=== PATIENT | female | born 1955 | race Caucasian/White ===

== ENCOUNTER 2018-07-28 10:47 | Inpatient (IN) ==
[2018-07-28] MEDS ORDERED: BENTYL IM ONE (11:10)
[2018-07-28] MEDS ORDERED: NS 1,000 ML IV ONE ×3 (11:10→13:22)
[2018-07-28] MEDS ORDERED: PEPCID IV ONE (11:11)
[2018-07-28] MEDS ORDERED: SODIUM CHLORIDE 0.9% INJ ONE (11:11)
--- NOTE | 2018-07-28 11:18 | PROVIDER DOCUMENTATION ---
HPI-Abdominal Pain/GI Problem - General Chief Complaint: N/V/D Stated Complaint: N/ V / D Time Seen by Provider: 07/28/18 10:59 Source: patient Allergies/Adverse Reactions: Patient Allergies Allergy/AdvReac Type Severity Reaction Status Date / Time adhesive tape Allergy Unknown Verified 04/06/17 15:31 cefazolin [From Kefzol] Allergy ANAPHYLAXIS Verified 04/06/17 15:31 clarithromycin [From Biaxin] Allergy SWELLING Verified 04/06/17 15:31 diflunisal [From Dolobid] Allergy SWELLING Verified 04/06/17 15:31 latex Allergy ANAPHYLAXIS Verified 04/06/17 15:31 povidone-iodine Allergy Unknown Verified 04/06/17 15:31 [From Betadine] rofecoxib [From Vioxx] Allergy SWELLING Verified 04/06/17 15:31 soap [From Betadine] Allergy Unknown Verified 04/06/17 15:31 sulfamethoxazole Allergy SWELLING Verified 04/06/17 15:31 [From Bactrim] tramadol [From Ultram] Allergy ITCHING Verified 04/06/17 15:31 trimethoprim [From Bactrim] Allergy SWELLING Verified 04/06/17 15:31 verapamil Allergy ANAPHYLAXIS Verified 04/06/17 15:31 Home Medications: Home Medication List Medication Instructions Recorded Confirmed Last Taken Type Amlodipine Besylate [Norvasc] 5 mg PO DAILY 04/06/17 04/08/17 04/07/17 06:00 History Atorvastatin Calcium [Lipitor] 20 mg PO DAILY 04/06/17 04/08/17 04/07/17 21:00 History Baclofen 10 mg PO TID 04/06/17 04/08/17 04/07/17 21:00 History Calcium Carbonate [Caltrate 600] 600 mg PO DAILY 04/06/17 04/08/17 04/07/17 06:00 History Cetirizine HCl [Zyrtec] 10 mg PO DAILY 04/06/17 04/08/17 04/07/17 06:00 History Cholecalciferol (Vitamin D3) 1,000 unit PO DAILY 04/06/17 04/08/17 04/07/17 06:00 History [Vitamin D3] Fluticasone 50 Mcg Nasal [place] 1 spray YAS DAILY 04/06/17 04/08/17 04/07/17 21:00 History [Flonase] Fluticasone/Sal[place] 100/50 INH 1 puff INH BID 04/06/17 04/08/17 04/08/17 07:00 History [Advair 100/50 Diskus] Furosemide [Lasix] 40 mg PO DAILY PRN 04/06/17 04/08/17 02/18/17 08:00 History Levothyroxine [Synthroid] 88 microgm PO DAILY 04/06/17 04/08/17 04/08/17 07:00 History Losartan/Hctz [Hyzaar 100/12.5 mg 1 each PO DAILY 04/06/17 04/08/17 04/07/17 06:00 History Tab] Magnesium Cl D.r. [Slow-Mag] 64 mg PO DAILY 04/06/17 04/08/17 04/07/17 21:00 History Metformin [Glucophage] 500 mg PO BID CC 04/06/17 04/08/17 04/07/17 17:00 History Montelukast Sodium [Singulair] 10 mg PO DAILY 04/06/17 04/08/17 04/08/17 07:00 History Morphine E.r. [Ms Contin] 15 mg PO BID 04/06/17 04/08/17 04/08/17 00:00 History Naproxen Sodium [Aleve] 220 mg PO BID 04/06/17 04/08/17 04/01/17 21:00 History Oxycodone HCl/Acetaminophen 1 each PO BID 04/06/17 04/08/17 04/07/17 18:00 History [Percocet 10-325 mg Tablet] Pantoprazole [Protonix] 40 mg PO DAILY 04/06/17 04/08/17 04/07/17 21:00 History Potassium Chloride 20 meq PO DAILY 04/06/17 04/08/17 04/07/17 11:55 History Promethazine [Phenergan] 25 mg PO Q6H PRN PRN 04/06/17 04/08/17 04/06/17 21:00 History Sennosides [Senokot] 1 each PO DAILY 04/06/17 04/08/17 04/07/17 21:00 History Spironolactone [Aldactone] 25 mg PO BID 04/06/17 04/08/17 04/07/17 18:00 History Vitamin B Complex 1 each PO DAILY 04/06/17 04/08/17 04/07/17 06:00 History Volmax 4 mg PO QHS 04/06/17 04/08/17 04/07/17 21:00 History Zolpidem [Ambien] 10 mg PO QHS 04/06/17 04/08/17 04/08/17 00:00 History Hydrocodone/Acetaminophen [[place] 1 each PO Q6H PRN PRN #15 tablet 04/08/17 Unknown Rx 10-325 Tablet] Promethazine [Phenergan] 25 mg PO Q6H PRN PRN #5 tablet 04/08/17 Unknown Rx Ciprofloxacin HCl [Cipro] 500 mg PO BID #14 tab 10/07/17 Unknown Rx - History of Present Illness-ABD Nature of Presenting Problems: Pt reports diarrhea started 7 days ago and resolved 3 days ago but n/v started 3 days ago. States her diarrhea was watery and her emesis is yellow bile. Has epigastric pain and weakness with SOB that started today. Abdominal Pain Onset Location: reports: generalized abdomen Pain Radiation: reports: no radiation Quality of Pain: reports: pressure, sharp Severity in ED: reports: moderate Onset/Duration: reports: 1 week ago Timing: reports: getting worse Exposure to sick contacts?: No Modifying Factors: improves with: nothing Associated Symptoms: reports: diarrhea, fatigue, malaise, muscle aches, nausea, shortness of breath, vomiting, weakness. denies: dizziness, fever/chills, headaches, pain with inspiration, syncope Last BM: this morning Dark Stools Present?: reports: none noticed Rectal Bleeding: reports: none # of Diarrhea Episodes: 10 (>10/day) # of Vomiting Episodes: 10 (>10/day) Emesis Description: reports: none Bruising or Bleeding Gums?: No Similar Symptoms Previously?: Yes (has h/o GERD) Recently seen or treated by another doctor?: No Review of Systems - Adult - REVIEW OF SYSTEMS - ADULT Constitutional: reports: nelly. denies: chills, fever Eyes: denies: blurred vision, double vision Cardiovascular: denies: chest pain Respiratory: reports: shortness of breath. denies: cough Gastrointestinal: reports: see HPI, abdominal pain, diarrhea, nausea, vomiting Neurological: denies: numbness, paresthesia All Other Systems: Reviewed and Negative Past History - Adult - PAST MEDICAL HISTORY-ADULT Review of Records: reports: Old Records Reviewed, Nursing Assessment Review, Medications Reviewed Gastrointestinal: reports: GERD - FAMILY HISTORY Family History: reviewed, not pertinent - SOCIAL HISTORY Smoking: non-smoker Living Situation: alone Physical Exam-General - PHYSICAL EXAM-ADULT Initial Vital Signs Reviewed: Yes - CONSTITUTIONAL General Appearance: appears well, alert, no apparent distress - EYES Eyes: PERRL/EOMI, pink conjunctivae - HEAD, EARS, NOSE, MOUTH & THROAT HENMT: normocephalic/atraumatic, moist mucous membranes - NECK Neck: non-tender, full range of motion, supple - RESPIRATORY Respiratory: chest non-tender, lungs clear, normal breath sounds - CARDIOVASCULAR Cardiovascular: regular rate, rhythm, no edema - GASTROINTESTINAL (ABDOMEN) Abdominal Exam: abnormal bowel sounds (hyperactive bowel sounds), tenderness (generalized). negative: distended, guarding, rigid, rebound, hernia, mass - MUSCULOSKELETAL Extremity: normal gait (uses cardiac rolling walker), normal inspection - SKIN Integumentary: normal color, normal turgor, warm/dry - NEUROLOGIC Neurologic: grossly normal, no motor/sensory deficits - PSYCHIATRIC Psych/Mental Status: normal thought content, normal thought process Progress - PLAN OF CARE/RESULTS Progress/Plan/Lab Results: Vital Signs - 8 hr 07/28/18 10:50 Temperature 96.9 F L Pulse Rate 113 H Respiratory Rate 20 Blood Pressure 91/49 O2 Sat by Pulse Oximetry 96 Orders Category Date Time Status Saline Loc NOW Care 07/28/18 11:10 Active AMYLASE [CHEM] Stat Lab 07/28/18 10:56 Ordered CBC WITH DIFF [HEME] Stat Lab 07/28/18 10:56 Uncollected COMPREHENSIVE METABOLIC PANEL [CHEM] Stat Lab 07/28/18 10:56 Uncollected LIPASE [CHEM] Stat Lab 07/28/18 10:56 Uncollected OCCULT BLOOD SCREEN STOOL PL Stat Lab 07/28/18 11:10 Uncollected TYPE & SCREEN [BBK] Stat Lab 07/28/18 10:56 Uncollected 0.9% Sodium Chloride Inj [Ns] 1,000 ml Med 07/28/18 11:10 Active IV 999 mls/hr Dicyclomine [Bentyl] Med 07/28/18 11:10 Discontinued 20 mg IM NOW ONE Famotidine [Pepcid] Med 07/28/18 11:11 Discontinued 20 mg IV NOW ONE Sodium Chloride 0.9% Med 07/28/18 11:11 Discontinued 5 - 10 ml INJ NOW ONE Abd Pain/Abn Bleeding Stat Oth 07/28/18 10:55 Ordered Result Diagrams: 07/28/18 11:25 07/28/18 11:25 - REASSESSMENT Reassessment #1 Time Reassessed: 15:26 (discussed admission with pt and all questions answered, pt motivated to improve as she is scheduled to visit grandchild in [place] at the end of the month) Status: improving - CONSULTS/PCP/HOSPITALIST Notification #1 *Consult/PCP/Hospitalist*: [place] Time Discussed: 14:26 Consult Disposition: Admit (admit to ICU) Departure - Departure Date of Disposition Decision: 07/28/18 Time of Disposition Decision: 14:26 DIAGNOSIS: Sepsis associated hypotension UTI (urinary tract infection) Qualifiers: Urinary tract infection type: acute cystitis Hematuria presence: with hematuria Qualified Code(s): N30.01 - Acute cystitis with hematuria Disposition: ADMITTED INPATIENT 09 Certified Medical Emergency: Emergent Condition: Stable - Critical Care Note This patient required my direct & personal management of CC.: No Attestation - Physician/ SANDRA Attestation Patient care was provided by Advanced Practice Provider:: Yes Advanced Practice Provider:: Geneva Wills Advanced Practice Provider documentation review:: The Mid-level provider documentation, treatment plan and medical decision making was reviewed by the physician who agrees with all treatment and medical decision making by the MLP. The physician spent face to face time with patient:: Yes Advanced Practice Provider documentation review:: Supervising physician onsite and consulted in the evaluation and care of this patient. The physician did have a face to face encounter with the patient.
[2018-07-28 11:35] LABS: OCCULT BLOOD 1 NEGATIVE (NEGATIVE)
[2018-07-28] MEDS ORDERED: ZOFRAN IV ONE ×2 (11:41→15:29)
[2018-07-28 11:45] LABS: BASO# 0.02 X1000 (0.0-0.2); BASO% 0.1 % (0.0-0.8); EOS# 0.02 X1000 (0.0-0.7); EOS% 0.1 % (0.0-10.0); HEMATOCRIT 39.2 % (37.0-47.0); IMM GRAN# 0.04 X1000 (0.0-0.04); IMM GRAN% 0.3 % (0.0-0.5); LYMPH% 18.7 % (20.5-51.1); MCHC 33.2 g/dL (33-37); MCV 87.5 FL (81-99); MONO# 1.43 X1000 (0.11-0.59); MONO% 9.9 % (1.7-9.3); MPV 10.9 FL (7.4-10.4); NEUT# 10.23 X1000 (1.4-6.5); NEUT% 70.9 % (42.2-75.2); PLT 397 X1000 (130-400); RBC 4.48 XMIL (4.2-5.4); RDW 13.1 % (11.5-14.5); WBC 14.44 X1000 (4.8-10.8)
[2018-07-28 12:07] LABS: ALBUMIN 4.3 g/dL (3.5-5.0); CALCIUM 9.4 mg/dL (8.8-10.2); CREATININE 2.1 mg/dL (0.5-0.9); POTASSIUM 3.2 mmol/L (3.5-5.1); TOTAL BILIRUBIN 0.6 mg/dL (0.20-1.00); TOTAL PROTEIN 8.1 g/dL (6.3-8.3)
[2018-07-28 12:44] LABS: URINE SOURCE CLEAN CATCH
[2018-07-28 12:45] LABS: BILIRUBIN URINE NEGATIVE (NEGATIVE); BLOOD URINE 3+ (NEGATIVE); CLARITY CLEAR (CLEAR); COLOR YELLOW; KETONE URINE NEGATIVE (NEGATIVE); LEUKOCYTES URINE TRACE (NEGATIVE); NITRITE URINE POSITIVE (NEGATIVE); PROTEIN URINE 2+(100 mg/dL) mg/dL (NEGATIVE); UROBILINOGEN URINE 1 mg/dL
[2018-07-28 12:59] LABS: CK-MB 4.08 ng/mL (0.0-5.0)
[2018-07-28 13:06] LABS: INR 0.96; PROTIME 13.3 Seconds (11.0-16.0)
[2018-07-28 13:07] LABS: PTT 26.3 Seconds (22.3-41.8)
[2018-07-28] MEDS ORDERED: NS 500 ML IV ONE (13:22)
[2018-07-28] MEDS ORDERED: PITRESSIN 40 UNIT in NS 100 ML IV SCH (13:30)
[2018-07-28] MEDS ORDERED: LEVOPHED 8 MG in D5 1/2 NS 250 ML IV SCH (13:30)
[2018-07-28] MEDS ORDERED: EPINEPHRINE 8 MG in D5W 250 ML IV SCH (13:30)
[2018-07-28] MEDS ORDERED: ZOSYN 3.375 GM in NS 50 ML IV ONE (14:00)
[2018-07-28] MEDS ORDERED: TYLENOL PO PRN (14:32)
[2018-07-28] MEDS ORDERED: PYRIDIUM PO ONE (14:59)
--- NOTE | 2018-07-28 15:19 | Diag Imaging Result Doc PS360 ---
EXAM: CT RENAL STONE SEARCH 07/28/2018 HISTORY: abdominal pain TECHNIQUE: This exam was performed using automated exposure control, adjustment of mA or kV according to patient size, and/or use of iterative reconstruction technique. COMMENT: There are no previous studies available for comparison. There is no evidence of acute disease in the visualized portion of the chest. There is a partially visible granulomatous calcified node in the lower right hilum. There has been cholecystectomy. There is no evidence of nephrolithiasis. The collecting system on the right is somewhat distended. There are some air-fluid levels in the small bowel without definite obstructing lesion or transition zone. There is gas and stool throughout the colon. There is some beam hardening artifact arising from hardware in the lumbar spine. There is a Perdomo catheter in the urinary bladder. There is no evidence of ureteral stones. There is no evidence of appendicitis. There has been previous hysterectomy. There are bilateral ovarian cysts the left-sided cyst measuring 5.2 cm and the right-sided cyst measuring 3 cm. There is no abnormal fluid collection. There is a fat-containing umbilical hernia. There is diverticulosis in the sigmoid colon without evidence of active diverticulitis. There is a bone island in the left femoral head. IMPRESSION: Bilateral ovarian cysts. Mild constipation. Mild right hydronephrosis without clear etiology. The possibility of gastroenteritis cannot be excluded. Electronically signed by Tu Sainz 07/28/2018 3:16 PM
--- NOTE | 2018-07-28 15:20 | Diag Imaging Result Doc PS360 ---
EXAM: CHEST-PORTABLE 07/28/2018 HISTORY: leukocytosis; pos pna TECHNIQUE: AP portable at 1509 COMMENT: There is no evidence of acute cardiac or pulmonary disease. There may be COPD. Compared to 10/06/2017 there has been no significant change. IMPRESSION: COPD. Electronically signed by Tu Sainz 07/28/2018 3:17 PM
[2018-07-28] MEDS ORDERED: NS 1,000 ML ONE (15:29)
[2018-07-28] MEDS: ZYVOX 600 MG/D5W 600 MG/300 ML IVPB IV SCH (15:40)
[2018-07-28] MEDS: PROTONIX IV SCH (17:40)
[2018-07-28] MEDS: SODIUM CHLORIDE 0.9% INJ SCH (17:41)
--- NOTE | 2018-07-28 18:19 | HISTORY AND PHYSICAL ---
PRIMARY CARE PROVIDER: Dr. Dominguez. UROLOGIST: Dr. Meraz. CHIEF COMPLAINT: Nausea, vomiting, diarrhea, and right flank pain. HISTORY OF PRESENT ILLNESS: Ms. Maddie Glaser is a 63-year-old female with a medical history of morbid obesity, prolapsed bladder, frequent urinary tract infections since a child, urinary spasms, pyelonephritis, severe potassium loss with urination who apparently gets UTIs every 3-4 months, according to her. She also has a history of chronic pain syndrome. She presents here with complaints of what she states was volume overload about a week ago. She went to the pain clinic, had shortness of breath and low blood pressure according to her, and went home to self-treat instead of coming to the hospital. She developed nausea, vomiting, and diarrhea for at least a week. She states the diarrhea stopped around 3 days ago, but it was loose and yellow, and then the emesis she still continues to have, and it is yellow with severe epigastric pain. She has complained of chills and a 99 fever that is subjective, and today she developed right flank pain that is essentially achy. She does have burning with urination but denies any smell. She does state that she is normally having frequency. When she presented to the emergency department, her white blood cell count was 14,000, although the highest her temp here is 99.3, heart rate is normal, blood pressure is normal. Hemodynamically, she is stable, satting room air 96%. With the white blood cell count of 14,000, a lactate level was drawn, and it came back at 4.2, but a repeat has been down to 2.0 after IV fluid hydration. A urinalysis indicates that there is likely a urinary tract infection, and a urine culture has been sent. She also has a history of low potassium that she frequently gets rid of through urination, and it is 3.2 today. She states that she takes 40 mEq of potassium 3 times a day. She went for a renal CT, which indicates that she does have some mild right hydronephrosis without any clear etiology. There is some mild constipation, but there is a good possibility of gastroenteritis. A chest x-ray looks like it is saying COPD, but she denies any history of that. She is admitted for close observation to the ICU just due to the sepsis and the hypotension that she was originally experiencing from it. Apparently, she had gotten down to the 80s, and now it is back up after IV fluid hydration. PAST MEDICAL HISTORY: 1. Chronic pain syndrome. 2. Anemia. 3. Arthritis. 4. Asthma and probably COPD due to body size. 5. Multiple bladder system problems, prolapsed bladder, UTIs since a child that are every 3-4 months, the last one being 10 months ago. 6. Bladder spasms. 7. Frequent pyelonephritis. 8. Excessive potassium loss through urination where she takes 40 mEq of potassium 3 times a day. 9. GERD. 10. Hypertension. 11. Hives frequently due to severe seasonal allergies. 12. Hyperlipidemia. 13. Hypothyroidism. 14. Peptic ulcer disease, had several ulcers in the late 80s, early 90s. 15. Morbid obesity with a BMI of 41.1. SURGICAL HISTORY: 1. Bilateral carpal tunnel repair. 2. Right foot surgery. 3. Partial hysterectomy. 4. Neck disk surgery. 5. Spinal fusion of the neck and lower back. 6. Subtotal thyroidectomy. 7. Cholecystectomy. SOCIAL HISTORY: Denies tobacco, alcohol, or illicit drug use. 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 FAMILY HISTORY: Mother's side of the family is positive for coronary artery disease, stroke, diabetes, breast and lung cancer. She had one brother who had hypertension, one sister has DJD. Unclear on father's side of the family's history. ALLERGIES: Latex, Betadine, adhesive tape, verapamil, Kefzol, Biaxin, Bactrim, Vioxx, and Ultram. HOME MEDICATIONS: Have not been verified yet. There has been an order placed to update and confirm homes. REVIEW OF SYSTEMS: Fourteen-point review of systems were complete and all were negative except for those mentioned in the above HPI. She has complained of severe epigastric pain and now generalized abdominal pain. PHYSICAL EXAMINATION: VITAL SIGNS: Temperature is 98.4, heart rate 84, respiratory rate 22, blood pressure 121/66, O2 saturation 96% on room air. She is 5 feet 4 inches tall, 239 pounds. BMI is 41.1. GENERAL: Ms. Maddie Glaser is a 63-year-old female. She is in no acute distress. She is able to answer questions appropriately. HEENT: Atraumatic, normocephalic. Pupils equal, round, reactive to light. Extraocular movements intact. Mucous membranes are dry. NECK: Trachea midline. CARDIOVASCULAR: S1, S2, regular rate and rhythm, no rubs, gallops, or murmurs. No lower extremity edema. +2 dorsalis and radial pulses. Negative JVD or carotid bruits. PULMONARY: Clear to auscultate bilateral breath sounds. No accessory muscle use or work of breathing noted. GI: Soft. Tender in all 4 quadrants. Also, right CVA tenderness. EXTREMITIES: Moves all extremities equally. Full range of motion. NEUROLOGICAL: Alert and oriented x3, follows commands. SKIN: Warm, dry, and intact. LABORATORY DATA: White blood cells 14,000, hemoglobin 13, hematocrit 39, platelet count 397. INR 0.96, PTT is 26.3. Sodium 127, potassium 3.2, BUN 25, creatinine 2.1, glucose 185, calcium 9.4. Bilirubin 0.60, AST 86, ALT 67. CK 408, troponin less than 0.01. Albumin is 4.3. Amylase 76, lipase 102. Serum lactate initially was 4.2, is down to 2.0. Urinalysis: 2+ protein, 3+ blood, positive nitrites, trace white blood cells, trace glucose. Stool occult blood is negative. IMAGING: Chest x-ray shows COPD possible. She does have a history of asthma. Renal CT: Bilateral ovarian cysts. Mild constipation. Mild right hydronephrosis without clear etiology. The possibility of gastroenteritis could not be excluded. ASSESSMENT AND PLAN: 1. Sepsis secondary to urinary tract infection. This is essentially resolved. Blood pressure stabilized after IV fluid hydration. They initiated her on Zosyn. They gave her some Pyridium, as well, and will continue the Zosyn. She is initiated on Zyvox, as well, until they can at least get blood culture preliminaries back, and she will be on IV fluid hydration at 125 mL an hour. 2. Acute kidney injury, again on IV fluid hydration. She is dehydrated. It is all prerenal. 3. Acute right pyelonephritis. Please see #1. Again, will be on Zosyn, on IV fluid hydration. 4. Gastroenteritis is likely, and the diarrhea has stopped now--it is just down to the nausea and vomiting, and she can have antiemetics, and she is getting IV fluid hydration. 5. Gastroesophageal reflux disease. Continue with proton pump inhibitor. 6. History of hyperlipidemia, waiting for home meds to be verified. 7. Hypothyroidism. Again, will continue with Synthroid once it is verified. 8. Depression. 9. History of asthma. 10. Chronic pain syndrome. 11. DVT prophylaxis. SCDs. Dictated by MICKI Welsh for Fortunato Ta MD cc: MICKI Welsh MD
[2018-07-28 18:24] LABS: BILIRUBIN URINE NEGATIVE (NEGATIVE); BLOOD URINE NEGATIVE (NEGATIVE); CLARITY CLEAR (CLEAR); COLOR YELLOW; GLUCOSE URINE NEGATIVE (NEGATIVE); KETONE URINE NEGATIVE (NEGATIVE); LEUKOCYTES URINE NEGATIVE (NEGATIVE); NITRITE URINE POSITIVE (NEGATIVE); PROTEIN URINE 1+(30 mg/dL) mg/dL (NEGATIVE); UROBILINOGEN URINE 1 mg/dL
[2018-07-28 18:27] LABS: URINE SOURCE CATH
[2018-07-28 18:29] LABS: URINE CAST NONE SEEN /LPF; URINE CRYSTAL NONE SEEN /HPF; URINE EPITHELIAL CELLS <10 /HPF (<10); URINE RBC <10 /HPF (<10); URINE WBC <10 /HPF (<10); URINE YEAST NONE SEEN /HPF
[2018-07-28 18:30] LABS: URINE BACTERIA NEGATIVE /HFP
[2018-07-28] MEDS ORDERED: DUONEB (A & A) INH PRN (18:51)
--- NOTE | 2018-07-28 19:12 | HISTORY AND PHYSICAL ---
ADDENDUM: This is an H and P addendum with MICKI Welsh. The patient is a pleasant 63-year-old female with chronic pain, anemia, COPD with multiple bladder problems. 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 Blood pressure was low. She was blacking out, seeing black spots. She had some diarrhea that stopped about a week ago. Her workup here showed an elevated lactate level and hyponatremia, acute renal failure. On exam, though, it is fairly benign. Lungs are clear. White count was 14. Abdominal exam is diffusely tender but no rebound, no guarding. Her urine was consistent with urinary tract infection. She had a positive nitrite, 3+ blood, but not a lot of white blood cells. She is heme- negative. Her CT scan shows some mild right hydronephrosis and gastroenteritis. In any case, the patient will be admitted and placed on fluids. Sepsis is felt to be secondary to UTI. She is on Zosyn, and we will continue. I think that is reasonable to continue Zosyn, and follow for clinical improvement. The rest of her labs have been ordered and stabilized. This was a [id number] encounter note with MICKI Welsh. cc: Fortunato Ta MD
[2018-07-28] MEDS: ZOFRAN IV PRN (20:42)
[2018-07-28] MEDS: CARAFATE LIQUID PO SCH (20:42)
[2018-07-28] MEDS: NS 1,000 ML IV PRN (20:42)
[2018-07-28] MEDS: TOPAMAX PO SCH (20:43)
[2018-07-28] MEDS: LIPITOR PO SCH (20:43)
[2018-07-28] MEDS: TYLENOL PO PRN (20:43)
[2018-07-28] MEDS: ZOSYN 3.375 GM in NS 50 ML IV SCH (20:43)
[2018-07-28] MEDS ORDERED: BLISTEX MEDICATED BERRY LIP BALM TOP PRN (20:47)
[2018-07-28] MEDS ORDERED: HEPARIN SUBQ SCH (21:00)
[2018-07-28] MEDS ORDERED: PERCOCET-10 PO SCH (21:00)
[2018-07-28] MEDS ORDERED: MS CONTIN PO SCH (21:00)
[2018-07-29] MEDS: AMBIEN PO SCH ×2 (00:10→21:15)
[2018-07-29] MEDS: MS CONTIN PO SCH ×2 (00:11→11:58)
[2018-07-29] MEDS: ZYVOX 600 MG/D5W 600 MG/300 ML IVPB IV SCH ×2 (02:36→14:58)
[2018-07-29] MEDS: ZOSYN 3.375 GM in NS 50 ML IV SCH ×4 (02:36→21:15)
[2018-07-29] MEDS: CARAFATE LIQUID PO SCH ×4 (02:36→21:15)
[2018-07-29 04:12] LABS: BE 14.2 mmoll (-3.0-3.0); BLOOD TYPE ARTERIAL; METHB 0.5 % (0.0-1.5); O2(CT) 11.2 mL/dL (15.0-23.0); O2HB 93.6 % (95.0-99.0); PO2(98.6) 74 mmHg (60-100); SAMPLE BLOOD; SAO2 94.3 % (95.0-100.0); THB 8.4 g/dL (11.5-17.4); pH(98.6) 7.44 (7.35-7.45)
[2018-07-29 04:16] LABS: ALLEN TEST NO; MODALITY CANNULA; PCO2(98.6) 59 mmHg (35-45)
[2018-07-29] MEDS: PERCOCET-10 PO SCH ×2 (05:50→17:19)
[2018-07-29] MEDS: PROTONIX IV SCH ×2 (05:50→17:20)
[2018-07-29] MEDS: SYNTHROID PO SCH (06:06)
[2018-07-29 07:51] LABS: BASO# 0.03 X1000 (0.0-0.2); BASO% 0.3 % (0.0-0.8); EOS# 0.09 X1000 (0.0-0.7); EOS% 0.9 % (0.0-10.0); HEMATOCRIT 36.2 % (37.0-47.0); HEMOGLOBIN 11.5 g/dL (12.0-16.0); IMM GRAN# 0.02 X1000 (0.0-0.04); IMM GRAN% 0.2 % (0.0-0.5); LYMPH# 3.78 X1000 (1.2-3.4); LYMPH% 38.1 % (20.5-51.1); MCHC 31.8 g/dL (33-37); MCV 91.2 FL (81-99); MONO# 0.96 X1000 (0.11-0.59); MONO% 9.7 % (1.7-9.3); MPV 11.1 FL (7.4-10.4); NEUT# 5.03 X1000 (1.4-6.5); NEUT% 50.8 % (42.2-75.2); PLT 312 X1000 (130-400); RBC 3.97 XMIL (4.2-5.4); RDW 13.3 % (11.5-14.5); WBC 9.91 X1000 (4.8-10.8)
[2018-07-29 08:13] LABS: ALBUMIN 3.4 g/dL (3.5-5.0); CALCIUM 8.6 mg/dL (8.8-10.2); CREATININE 1.7 mg/dL (0.5-0.9); MAGNESIUM 2.7 mg/dL (1.5-2.7); TOTAL BILIRUBIN 0.7 mg/dL (0.20-1.00); TOTAL PROTEIN 6.7 g/dL (6.3-8.3)
[2018-07-29 08:22] LABS: POTASSIUM 2.5 mmol/L (3.5-5.1)
[2018-07-29 08:36] LABS: PROTIME > 120.0 Seconds (11.0-16.0); PTT > 200.0 Seconds (22.3-41.8)
[2018-07-29 08:37] LABS: INR > 15.00
[2018-07-29] MEDS ORDERED: KLOR-CON PO ONE (08:52)
[2018-07-29] MEDS: LIORESAL PO SCH ×3 (09:11→17:19)
[2018-07-29] MEDS: ZYRTEC PO SCH (09:12)
[2018-07-29] MEDS: CALTRATE 600 PO SCH (09:12)
[2018-07-29] MEDS: TOPAMAX PO SCH ×4 (09:12→21:15)
[2018-07-29] MEDS: SINGULAIR PO SCH (09:12)
[2018-07-29] MEDS: LOMOTIL PO SCH ×3 (09:14→17:11)
[2018-07-29] MEDS: POTASSIUM CHLORIDE 20 MEQ/SWI 20 MEQ/100 ML IVPB IV SCH ×3 (09:22→13:00)
[2018-07-29] MEDS: BREO ELLIPTA 200/25 MCG INH INH SCH (12:12)
[2018-07-29 14:52] LABS: INR 0.91; PROTIME 12.7 Seconds (11.0-16.0)
[2018-07-29 14:53] LABS: PTT 26.2 Seconds (22.3-41.8)
--- NOTE | 2018-07-29 15:22 | PROGRESS NOTE ---
DATE: 07/29/2018 SUBJECTIVE: Patient has no major complaints. OBJECTIVE: Vital Signs: Blood pressure is 136/65, heart rate of 85, respiratory rate 22, temperature 98.3 degrees. Cardiovascular: Regular rate and rhythm. Pulmonary: Bilateral breath sounds clear to auscultation. GI: Soft, nontender, nondistended. Bowel sounds are positive. LABORATORY DATA: H and H is 11, and 36, which is a drop. White count 9, platelets 312,000. All her coags though are abnormal. INR is greater than 15, PTT greater than 200, PaO2 74. Potassium 2.5, creatinine 1.7. AST and ALT are 74 and 57. Her micro though is negative. She is heme negative. PROBLEM LIST: 1. UTI and sepsis. Clinically she has improved. However, her urine culture is negative. We will continue empiric antibiotics. She is on Zosyn and Zyvox pending her cultures. 2. Acute kidney injury is improving with hydration. We will continue fluids. Her urine electrolytes are likely consistent with pre renal but it is not 100% obvious there, but she is improving with fluids. 3. GERD. We will continue PPI. 4. Acute coagulopathy. At this point I am suspicious it is lab error. However, the numbers are so profoundly elevated, I did order 2 units of fresh frozen plasma. There is no evidence of bleeding. Repeat coags are pending. She is not on any anticoagulation. She did receive some subcu heparin, but that certainly would not have caused this level of abnormality. Hopefully, this is a lab error. If it is not a lab error, we will get a hematology opinion and she may end up requiring transfer. There is no evidence of bleeding at this point. Will monitor in the unit until we can resolve her coagulopathy issues. cc: Fortunato Ta MD
[2018-07-29] MEDS: SODIUM CHLORIDE 0.9% INJ SCH (17:19)
[2018-07-29] MEDS: LIPITOR PO SCH (21:15)
[2018-07-29] MEDS: TYLENOL PO PRN (21:15)
[2018-07-30] MEDS: MS CONTIN PO SCH ×3 (00:13→23:14)
[2018-07-30] MEDS: NS 1,000 ML IV PRN ×2 (00:18→14:06)
[2018-07-30] MEDS: ZOSYN 3.375 GM in NS 50 ML IV SCH ×4 (01:34→21:08)
[2018-07-30] MEDS: CARAFATE LIQUID PO SCH ×4 (01:34→21:08)
[2018-07-30] MEDS: ZYVOX 600 MG/D5W 600 MG/300 ML IVPB IV SCH (02:32)
[2018-07-30] MEDS: ZOFRAN IV PRN ×2 (05:50→10:33)
[2018-07-30] MEDS: PROTONIX IV SCH ×2 (05:50→17:25)
[2018-07-30] MEDS: PERCOCET-10 PO SCH ×2 (05:50→17:24)
[2018-07-30] MEDS: SYNTHROID PO SCH (06:06)
--- NOTE | 2018-07-30 07:45 | Diag Imaging Result Doc PS360 ---
EXAM: CHEST-PORTABLE 07/30/2018 HISTORY: FU SOB TECHNIQUE: AP portable at 0630 COMMENT: There is no evidence of acute cardiac or pulmonary disease. Considering differences in technique and inspiration there has been no significant change since 07/28/2018. IMPRESSION: Stable chest. Electronically signed by Tu Sainz 07/30/2018 7:43 AM
[2018-07-30 08:27] LABS: BASO# 0.05 X1000 (0.0-0.2); BASO% 0.5 % (0.0-0.8); EOS# 0.26 X1000 (0.0-0.7); EOS% 2.4 % (0.0-10.0); HEMATOCRIT 35.9 % (37.0-47.0); IMM GRAN# 0.03 X1000 (0.0-0.04); IMM GRAN% 0.3 % (0.0-0.5); LYMPH# 4.69 X1000 (1.2-3.4); LYMPH% 42.6 % (20.5-51.1); MCH 28.9 PG (27-31); MCHC 30.6 g/dL (33-37); MCV 94.2 FL (81-99); MONO# 0.98 X1000 (0.11-0.59); MONO% 8.9 % (1.7-9.3); MPV 11.2 FL (7.4-10.4); NEUT# 5.01 X1000 (1.4-6.5); NEUT% 45.3 % (42.2-75.2); PLT 286 X1000 (130-400); RBC 3.81 XMIL (4.2-5.4); RDW 13.6 % (11.5-14.5); WBC 11.02 X1000 (4.8-10.8)
[2018-07-30 08:31] LABS: PTT 27.3 Seconds (22.3-41.8)
[2018-07-30 08:34] LABS: INR 0.89; PROTIME 12.5 Seconds (11.0-16.0)
[2018-07-30 08:36] LABS: CALCIUM 8.5 mg/dL (8.8-10.2); CREATININE 1.3 mg/dL (0.5-0.9)
[2018-07-30] MEDS: ZYRTEC PO SCH (09:14)
[2018-07-30] MEDS: SINGULAIR PO SCH (09:14)
[2018-07-30] MEDS: TOPAMAX PO SCH ×4 (09:14→21:00)
[2018-07-30] MEDS: LOMOTIL PO SCH ×3 (09:14→17:24)
[2018-07-30] MEDS: LIORESAL PO SCH ×3 (09:14→17:24)
[2018-07-30] MEDS: CALTRATE 600 PO SCH (09:14)
[2018-07-30] MEDS: BREO ELLIPTA 200/25 MCG INH INH SCH (09:37)
[2018-07-30] MEDS ORDERED: KLOR-CON PO ONE (12:10)
[2018-07-30] MEDS: POTASSIUM CHLORIDE 20 MEQ/SWI 20 MEQ/100 ML IVPB IV SCH ×2 (14:16→23:52)
[2018-07-30] MEDS: SODIUM CHLORIDE 0.9% INJ SCH (17:25)
[2018-07-30] MEDS ORDERED: NS 1,000 ML IV PRN (17:42)
--- NOTE | 2018-07-30 17:58 | PROGRESS NOTE ---
DATE: 07/30/2018 SUBJECTIVE: Patient has no major complaints. OBJECTIVE: Vital signs: Blood pressure is 152/75, heart rate 72, respiratory rate 18, temperature of 98.4 degrees. Cardiovascular: Regular rate and rhythm. Pulmonary: Bilateral breath sounds. Clear to auscultation. GI: Soft, nontender, nondistended. Bowel sounds are positive. LABORATORY DATA: Her white count went up just a hair 11,000 but is down from 14, hemoglobin and hematocrit are 11 and 35. Creatinine is down to 1.3, down from initially 2.1, but potassium is still low at 3. Micro still has not grown out anything. Chest x-ray is still clear but clinically it looked like she had a UTI on admission. PROBLEM LIST: 1. Urinary tract infection, presumed, with sepsis. That has resolved. She is on Zosyn which I think we can probably stop and discharge on Augmentin tomorrow. 2. Acute kidney injury. That seems to be better. She had some intermittent hypotensive blood pressures, but I think those are mostly associated with her narcotics. 3. Coagulopathy was a lab error. Unfortunately, she got 2 units of FFP before we had that realization. Again, clinically seems intact and her coags are normal. 4. Hypokalemia. We will supplement and follow. Check a magnesium level. 5. Disposition. I offered to try to go home this evening, but she still feels a bit weak. So, we will watch her through tomorrow, take her catheter out, encourage ambulation, and anticipate discharge tomorrow. cc: Fortunaot Ta MD
[2018-07-30] MEDS: AMBIEN PO SCH (21:07)
[2018-07-30] MEDS: LIPITOR PO SCH (21:07)
[2018-07-30] MEDS ORDERED: POTASSIUM CHLORIDE 20 MEQ/SWI 20 MEQ/100 ML IVPB IV SCH (23:00)
[2018-07-31] MEDS: CARAFATE LIQUID PO SCH (02:10)
[2018-07-31] MEDS: ZOSYN 3.375 GM in NS 50 ML IV SCH (02:10)
[2018-07-31] MEDS: PERCOCET-10 PO SCH (05:37)
[2018-07-31] MEDS: PROTONIX IV SCH (05:37)
[2018-07-31] MEDS: SYNTHROID PO SCH ×2 (05:37→06:20)
[2018-07-31 06:47] LABS: BASO# 0.03 X1000 (0.0-0.2); BASO% 0.3 % (0.0-0.8); EOS# 0.26 X1000 (0.0-0.7); EOS% 2.3 % (0.0-10.0); IMM GRAN# 0.01 X1000 (0.0-0.04); IMM GRAN% 0.1 % (0.0-0.5); LYMPH% 28.5 % (20.5-51.1); MCH 28.7 PG (27-31); MCHC 30.6 g/dL (33-37); MONO# 0.65 X1000 (0.11-0.59); MONO% 5.8 % (1.7-9.3); MPV 10.7 FL (7.4-10.4); NEUT# 7.06 X1000 (1.4-6.5); PLT 309 X1000 (130-400); RBC 3.83 XMIL (4.2-5.4); RDW 13.4 % (11.5-14.5); WBC 11.21 X1000 (4.8-10.8)
[2018-07-31 07:02] LABS: CALCIUM 8.9 mg/dL (8.8-10.2); CREATININE 1.1 mg/dL (0.5-0.9); POTASSIUM 3.4 mmol/L (3.5-5.1)
[2018-07-31] MEDS: BREO ELLIPTA 200/25 MCG INH INH SCH (07:59)
[2018-07-31 08:02] VITALS: BP 156/65
[2018-07-31] MEDS ORDERED: KLOR-CON PO ONE (08:03)
[2018-07-31] MEDS ORDERED: COZAAR PO SCH (09:00)
[2018-07-31] MEDS ORDERED: HYDROCHLOROTHIAZIDE PO SCH (09:00)
[2018-07-31] MEDS ORDERED: SLOW-MAG PO SCH (09:00)
[2018-07-31] MEDS ORDERED: VICON-C PO SCH (09:00)
[2018-07-31] MEDS ORDERED: KLOR-CON PO SCH (13:00)
[2018-08-01] MEDS ORDERED: PROTONIX PO SCH (07:00)
--- NOTE | 2018-08-01 07:59 | DISCHARGE SUMMARY ---
ADMISSION DATE: 07/28/2018 DISCHARGE DATE: 07/31/2018 DISCHARGE DIAGNOSES: 1. Sepsis, resolved. 2. Urinary tract infection has been treated with Zosyn. 3. Acute kidney injury, resolved. 4. Hypokalemia, resolved. 5. Others. CONSULTATIONS: None. PROCEDURES: None. BRIEF HOSPITAL COURSE: Patient is a 63-year-old female who presented to the hospital, treated in the usual fashion, placed on antibiotics. Her cultures were negative. Her symptoms have resolved, and therefore she will be discharged home. Certainly would prefer patient stay in the hospital another day, although she states that if we do not discharge her, she will be leaving anyway. Therefore we will arrange and make plans and discharge. DISPOSITION: Patient will be discharged home. Will not continue antibiotics as urinary culture currently is negative. She will continue all of her home medications. Follow up with her primary care in 1 week. Further orders as needed. cc: Hank Vazquez MD
== END 2018-07-31 08:35 | disposition home or self-care (01) | DRG 872 ==
LOC: P.ED 10:47 → P.ICU 15:25 → SUATTDRO 15:25 → P.MEDSURG 07-30 06:12
PROVIDERS: ATTEND Family Medicine
CPT/HCPCS: 36430; 51702; 71010; 71045; 74176; 80048; 80053; 81001; 81003; 82150; 82270; 82550; 82553; 82805; 82948; 83605; 83690; 83735; 83935; 84300; 84484; 85025; 85610; 85730; 86850; 86900; 86901; 87040; 87088; 94640; 94761; 94762; 94799; 96361; 96365; 96375; 97162; 99285; A9270; C9113; J1644; J2020; J2405; J2543; J3480; J7030; P9017; S0028; S0164; XXXXX

== ENCOUNTER 2019-01-18 21:16 | Inpatient (IN) ==
[2019-01-18] MEDS ORDERED: NS 1,000 ML IV ONE (22:16)
[2019-01-18 23:10] LABS: BASO# 0.03 X1000 (0.0-0.2); BASO% 0.2 % (0.0-0.8); EOS# 0.02 X1000 (0.0-0.7); EOS% 0.1 % (0.0-10.0); HEMATOCRIT 39.6 % (37.0-47.0); HEMOGLOBIN 12.5 g/dL (12.0-16.0); IMM GRAN# 0.02 X1000 (0.0-0.04); IMM GRAN% 0.1 % (0.0-0.5); MCH 28.8 PG (27-31); MCHC 31.6 g/dL (33-37); MCV 91.2 FL (81-99); MONO# 1.41 X1000 (0.11-0.59); MPV 11.2 FL (7.4-10.4); NEUT# 11.69 X1000 (1.4-6.5); NEUT% 74.6 % (42.2-75.2); PLT 346 X1000 (130-400); RBC 4.34 XMIL (4.2-5.4); WBC 15.67 X1000 (4.8-10.8)
[2019-01-18 23:21] LABS: INR 1.08; PROTIME 14.2 Seconds (11.0-16.0)
[2019-01-18 23:22] LABS: PTT 30.9 Seconds (22.3-41.8)
[2019-01-18 23:30] LABS: ALB/GLOB RATIO 1.3; ALBUMIN 4.8 g/dL (3.5-5.0); CALCIUM 9.9 mg/dL (8.8-10.2); CREATININE 2.5 mg/dL (0.5-0.9); POTASSIUM 5.2 mmol/L (3.5-5.1); TOTAL BILIRUBIN 0.38 mg/dL (0.20-1.00); TOTAL PROTEIN 8.4 g/dL (6.3-8.3)
--- NOTE | 2019-01-18 23:40 | EKG Report ---
Test Performed on : 01/18/2019 11:26:42 PM Test Reason : ams Blood Pressure : / mmHG Vent. Rate : 086 BPM Atrial Rate : 086 BPM P-R Int : 168 ms QRS Dur : 098 ms QT Int : 390 ms P-R-T Axes : 050 -04 049 degrees QTc Int : 466 ms Normal sinus rhythm. Normal ECG No previous ECGs available Unconfirmed Result
[2019-01-19 01:04] LABS: URINE SOURCE CATH
[2019-01-19 01:09] LABS: BILIRUBIN URINE NEGATIVE (NEGATIVE); BLOOD URINE MODERATE (NEGATIVE); COLOR YELLOW; GLUCOSE URINE NEGATIVE (NEGATIVE); KETONE URINE TRACE mg/dL (NEGATIVE); LEUKOCYTES URINE NEGATIVE (NEGATIVE); NITRITE URINE NEGATIVE (NEGATIVE); PROTEIN URINE TRACE mg/dL (NEGATIVE); SP GRAVITY URINE 1.011; TURBIDITY URINE HAZY (CLEAR); UR EPITHELIAL CELLS <10 /HPF (<10); URINE BACTERIA NEGATIVE /HPF; URINE RBC <10 /HPF (<10); UROBILINOGEN URINE NORMAL (NORMAL)
[2019-01-19 01:23] LABS: UR AMPHETAMINES QUAL NONE DETECTED (NONE DETECT); UR BARBITUATES QUAL NONE DETECTED (NONE DETECT); UR BENZODIAZEPIN QUAL NONE DETECTED (NONE DETECT); UR CANNABINOIDS QUAL NONE DETECTED (NONE DETECT); UR COCAINE QUAL NONE DETECTED (NONE DETECT); UR METHADONE QUAL NONE DETECTED (NONE DETECT); UR OPIATES QUAL PRESUMPTIVE POSITIVE (NONE DETECT); UR OXYCODONE QUAL PRESUMPTIVE POSITIVE (NONE DETECT); UR PCP QUAL NONE DETECTED (NONE DETECT)
[2019-01-19] MEDS ORDERED: NS 1,000 ML IV ONE (01:40)
--- NOTE | 2019-01-19 01:49 | PROVIDER DOCUMENTATION ---
This chart was entered by Aaron Peck Scribe, acting as scribe for Mukul Betancur MD. HPI-Neurological Disorder - General Chief Complaint: Altered Mental Status Stated Complaint: AMS Time Seen by Provider: 01/18/19 21:45 Source: patient Unable to obtain history due to:: altered Allergies/Adverse Reactions: Patient Allergies Allergy/AdvReac Type Severity Reaction Status Date / Time adhesive tape Allergy Unknown Verified 04/06/17 15:31 cefazolin [From Kefzol] Allergy ANAPHYLAXIS Verified 04/06/17 15:31 clarithromycin [From Biaxin] Allergy SWELLING Verified 04/06/17 15:31 diflunisal [From Dolobid] Allergy SWELLING Verified 04/06/17 15:31 latex Allergy ANAPHYLAXIS Verified 04/06/17 15:31 povidone-iodine Allergy Unknown Verified 04/06/17 15:31 [From Betadine] rofecoxib [From Vioxx] Allergy SWELLING Verified 04/06/17 15:31 soap [From Betadine] Allergy Unknown Verified 04/06/17 15:31 sulfamethoxazole Allergy SWELLING Verified 04/06/17 15:31 [From Bactrim] tramadol [From Ultram] Allergy ITCHING Verified 04/06/17 15:31 trimethoprim [From Bactrim] Allergy SWELLING Verified 04/06/17 15:31 verapamil Allergy ANAPHYLAXIS Verified 04/06/17 15:31 Home Medications: Home Medication List Medication Instructions Recorded Confirmed Last Taken Type Calcium Carbonate [Caltrate 600] 600 mg PO DAILY 04/06/17 07/28/18 04/07/17 06:00 History Cetirizine HCl [Zyrtec] 10 mg PO DAILY 04/06/17 07/28/18 04/07/17 06:00 History Cholecalciferol (Vitamin D3) 1,000 unit PO DAILY 04/06/17 04/08/17 04/07/17 06:00 History [Vitamin D3] Fluticasone 50 Mcg Nasal [place] 1 spray YAS DAILY 04/06/17 04/08/17 04/07/17 21:00 History [Flonase] Fluticasone/Salmet 100/50 INH 1 puff INH BID 04/06/17 04/08/17 04/08/17 07:00 History [Advair 100/50 Diskus] Levothyroxine [Synthroid] 88 microgm PO DAILY 04/06/17 07/28/18 04/08/17 07:00 History Losartan/Hctz [Hyzaar 100/12.5 mg 1 each PO DAILY 04/06/17 07/28/18 04/07/17 06:00 History Tab] Magnesium Cl D.r. [Slow-Mag] 64 mg PO DAILY 04/06/17 07/28/18 04/07/17 21:00 History Metformin [Glucophage] 500 mg PO BID CC 04/06/17 04/08/17 04/07/17 17:00 History Montelukast Sodium [Singulair] 10 mg PO DAILY 04/06/17 04/08/17 04/08/17 07:00 History Pantoprazole [Protonix] 40 mg PO DAILY 04/06/17 04/08/17 04/07/17 21:00 History Potassium Chloride 20 meq PO TID 04/06/17 07/28/18 04/07/17 11:55 History Promethazine [Phenergan] 25 mg PO Q6H PRN PRN 04/06/17 04/08/17 04/06/17 21:00 History Sennosides [Senokot] 2 - 3 tab PO DAILY 04/06/17 07/28/18 04/07/17 21:00 History Vitamin B Complex 1 each PO DAILY 04/06/17 07/28/18 04/07/17 06:00 History Volmax 4 mg PO QHS 04/06/17 07/28/18 04/07/17 21:00 History Albuterol Sulfate [Proair Hfa] 1 puff INHALATION Q4-6H PRN PRN 07/28/18 07/28/18 Unknown History Atorvastatin Calcium [Lipitor] 20 mg PO HS 07/28/18 07/28/18 Unknown History Baclofen 10 mg TID 07/28/18 07/28/18 Unknown History Diphenoxylate/Atropine [Lomotil] 1 tab PO TID 07/28/18 07/28/18 Unknown History Fluticasone 50 Mcg Nasal [place] 1 spray ORDERED DAILY 07/28/18 07/28/18 U nknown History [Flonase] Fluticasone/Vilanterol [Breo 1 puff DAILY 07/28/18 07/28/18 Unknown History Ellipta 200-25 Mcg INH] Montelukast Sodium [Singulair] 10 mg PO DAILY 07/28/18 07/28/18 Unknown History Morphine Sulfate [Morphine Sulfate 15 mg PO Q12HR 07/28/18 07/28/18 Unknown H istory ER] Oxycodone/APAP 10 mg/325 mg 1 tab PO Q12HR 07/28/18 07/28/18 Unknown History [Percocet-10] Pantoprazole [Protonix] 40 mg PO DAILY@0700 07/28/18 07/28/18 Unknown History Topiramate [Topamax] 50 mg PO 4XDAY 07/28/18 07/28/18 Unknown History Zolpidem [Ambien] 10 mg PO QHS 07/28/18 07/28/18 Unknown History Furosemide [Lasix] 40 mg PO DAILY PRN #0 07/31/18 07/28/18 02/18/17 08:00 Rx - History of Present Illness-Neuro Nature of Presenting Problem: Pt is a 63 yof who presents to the ED with family with a CC of altered mental status. Pt's son reports the pt has been altered since approximately 1700. Pt's son reports the pt has chronic back pain and states she takes multiple medications for it. Pt's son thinks the pt took too much of her pain medication. Pt reports he found the pt lying in the floor with an abrasion to her nose. Pt reports the pt went to [place] in October and had a similar episode and states she was diagnosed with a mild onset of dementia. Severity: reports: mild Onset/Duration: reports: 4-6 hours ago Timing: reports: still present Context: reports: other Character of Altered Mental Status: reports: disoriented, confused, combative, decreased responsiveness Any recent trauma/injury?: reports: minor Character of Deficits: reports: new weakness, altered sensation, impaired speech Cognitive Baseline: alert but disoriented Gait Baseline: walks without assistance Associated Symptoms: reports: other (See HPI) Similar Symptoms Previously?: No Recently seen or treated by another doctor?: No Review of Systems - Adult - REVIEW OF SYSTEMS - ADULT Constitutional: reports: see HPI Eyes: reports: no symptoms reported Ears, Nose, Mouth & Throat: reports: see HPI, nose pain Cardiovascular: reports: no symptoms reported Respiratory: reports: no symptoms reported Gastrointestinal: reports: no symptoms reported Genitourinary: reports: no symptoms reported Musculoskeletal: reports: no symptoms reported Integumentary: reports: no symptoms reported Neurological: reports: see HPI Psychiatric: reports: no symptoms reported Endocrine: reports: no symptoms reported Hematologic/Lymphatic: reports: no symptoms reported Allergic/Immunologic: reports: no symptoms reported All Other Systems: Reviewed and Negative Past History - Adult - PAST MEDICAL HISTORY-ADULT Review of Records: reports: Old Records Reviewed, Nursing Assessment Review, Medications Reviewed, Social history reviewed & non-contributory. Major Childhood Illnesses: reports: denies history Cardiovascular: reports: denies history Respiratory: reports: denies history Gastrointestinal: reports: GERD Obstetrical/Gynecological: reports: denies history Genitourinary: reports: denies history Musculoskeletal: reports: denies history Neurological: reports: denies history Endocrine/Immune: reports: denies history Other Conditions: reports: denies history - IMMUNIZATION STATUS Childhood Immunizations: See Nurse Assessment Flu Vaccine: See Nurse Assessment - FAMILY HISTORY Family History: reviewed, not pertinent - SOCIAL HISTORY Smoking: denies, non-smoker Substance Use: none/never, denies Alcohol Use Frequency: never Physical Exam- Neurological - Physical Exam-Neuro Exam Limited by: Pt's condition Initial Vital Signs Reviewed: Yes General Appearance: alert, mild distress, slow to respond HENMT: other Head Injury: other (Unable to assess due to pt's condition) Neck: non-tender, full range of motion Respiratory: other (Unable to assess due to pt's condition) Cardiovascular: other (Unable to assess due to pt's condition) Abdominal Exam: other (Unable to assess due to pt's condition) Extremity: other (Unable to assess due to pt's condition) detective investigator Exam: abnormal speech Motor/Sensory: sensory deficit Neurologic: motor weakness, sensory deficit Integumentary: normal color, warm/dry Psych/Mental Status: disoriented x 3 Progress - PLAN OF CARE/RESULTS Progress/Plan/Lab Results: Vital Signs - 8 hr 01/18/19 21:42 01/18/19 21:44 01/18/19 21:45 Temperature Pulse Rate 101 H 85 87 Respiratory Rate 23 18 15 Blood Pressure 115/54 O2 Sat by Pulse Oximetry 01/18/19 22:00 01/18/19 22:15 10/03/19 22:40 Temperature 98.4 F Pulse Rate 77 75 87 Respiratory Rate 19 13 19 Blood Pressure 132/83 O2 Sat by Pulse Oximetry 83 L 80 L 94 L 01/18/19 22:45 01/18/19 23:00 01/18/19 23:15 Temperature Pulse Rate 112 H 103 H 85 Respiratory Rate 24 15 22 Blood Pressure O2 Sat by Pulse Oximetry 99 97 01/18/19 23:30 01/18/19 23:45 01/19/19 00:00 Temperature Pulse Rate 86 87 112 H Respiratory Rate 16 19 Blood Pressure O2 Sat by Pulse Oximetry 99 97 97 Laboratory Results - last 24 hr 01/18/19 01/18/19 01/18/19 22:49 22:49 22:49 WBC 15.67 H RBC 4.34 Hgb 12.5 Hct 39.6 MCV 91.2 MCH 28.8 MCHC 31.6 L RDW Std Deviation 14.0 Plt Count 346 MPV 11.2 H Immature Gran % (Auto) 0.1 Neut % (Auto) 74.6 Lymph % (Auto) 16.0 L [place] % (Auto) 9.0 Eos % (Auto) 0.1 Baso % (Auto) 0.2 Immature Gran # (Auto) 0.02 Neut # (Auto) 11.69 H Lymph # (Auto) 2.50 [place] # (Auto) 1.41 H Eos # (Auto) 0.02 Baso # (Auto) 0.03 PT INR PTT ([place]in FS) Sodium 138 Potassium 5.2 H Chloride 93 L Carbon Dioxide 20 L Anion Gap 25 BUN 62 H Creatinine 2.5 H Estimated GFR/1.73 m2 20 BUN/Creatinine Ratio 25 Glucose 103 Calculated Osmolality 294 Calcium 9.9 Total Bilirubin 0.38 AST 497 H ALT 108 H Alkaline Phosphatase 108 H Ammonia Creatine Kinase Troponin T Tum-[id number]-Ckedfsdyhph Pept Total Protein 8.4 H Albumin 4.8 Globulin 3.6 Albumin/Globulin Ratio 1.3 Plasma Lactate Urine Source Urine Color Urine Turbidity Urine pH Ur Specific [place] Urine Protein Ur Glucose (Stick) Ur Ketones (Stick) Urine Blood Urine Nitrite Urine Bilirubin Urobilinogen Dipstick Urine Leukocytes Urine WBC (Auto) Urine RBC (Auto) U Epithel Cells (Auto) Urine Bacteria (Auto) Urine Opiates Screen Ur Oxycodone Screen Ur Methadone, Qual Ur Barbiturates Screen Ur Phencyclidine Scrn Ur Amphetamines Screen U Benzodiazepines Scrn Urine Cocaine Screen U Cannabinoids Screen Plasma/Serum Ethyl Alc 01/18/19 01/18/19 01/18/19 22:49 22:49 22:49 WBC RBC Hgb Hct MCV MCH MCHC RDW Std Deviation Plt Count MPV Immature Gran % (Auto) Neut % (Auto) Lymph % (Auto) [place] % (Auto) Eos % (Auto) Baso % (Auto) Immature Gran # (Auto) Neut # (Auto) Lymph # (Auto) [place] # (Auto) Eos # (Auto) Baso # (Auto) PT 14.2 INR 1.08 PTT (Actin FS) 30.9 Sodium Potassium Chloride Carbon Dioxide Anion Gap BUN Creatinine Estimated GFR/1.73 m2 BUN/Creatinine Ratio Glucose Calculated Osmolality Calcium Total Bilirubin AST ALT Alkaline Phosphatase Ammonia Creatine Kinase Troponin T [id number] Pept 290 H Total Protein Albumin Globulin Albumin/Globulin Ratio Plasma Lactate 1.5 Urine Source Urine Color Urine Turbidity Urine pH Ur Specific [place] Urine Protein Ur Glucose (Stick) Ur Ketones (Stick) Urine Blood Urine Nitrite Urine Bilirubin Urobilinogen Dipstick Urine Leukocytes Urine WBC (Auto) Urine RBC (Auto) U Epithel Cells (Auto) Urine Bacteria (Auto) Urine Opiates Screen Ur Oxycodone Screen Ur Methadone, Qual Ur Barbiturates Screen Ur Phencyclidine Scrn Ur Amphetamines Screen U Benzodiazepines Scrn Urine Cocaine Screen U Cannabinoids Screen Plasma/Serum Ethyl Alc 01/18/19 01/18/19 01/19/19 22:49 22:49 00:25 WBC RBC Hgb Hct MCV MCH MCHC RDW Std Deviation Plt Count MPV Immature Gran % (Auto) Neut % (Auto) Lymph % (Auto) [place] % (Auto) Eos % (Auto) Baso % (Auto) Immature Gran # (Auto) Neut # (Auto) Lymph # (Auto) [place] # (Auto) Eos # (Auto) Baso # (Auto) PT INR PTT ([place] FS) Sodium Potassium Chloride Carbon Dioxide Anion Gap BUN Creatinine Estimated GFR/1.73 m2 BUN/Creatinine Ratio Glucose Calculated Osmolality Calcium Total Bilirubin AST ALT Alkaline Phosphatase Ammonia Creatine Kinase 46443 H Troponin T 0.042 [id number]-Rmvwcdkgojx Pept Total Protein Albumin Globulin Albumin/Globulin Ratio Plasma Lactate Urine Source CATH Urine Color YELLOW Urine Turbidity HAZY Urine pH 5.0 Ur Specific [place] 1.011 Urine Protein TRACE A Ur Glucose (Stick) NEGATIVE Ur Ketones (Stick) TRACE A Urine Blood MODERATE A Urine Nitrite NEGATIVE Urine Bilirubin NEGATIVE Urobilinogen Dipstick NORMAL Urine Leukocytes NEGATIVE Urine WBC (Auto) 10-20 A Urine RBC (Auto) <10 U Epithel Cells (Auto) <10 Urine Bacteria (Auto) NEGATIVE Urine Opiates Screen Ur Oxycodone Screen Ur Methadone, Qual Ur Barbiturates Screen Ur Phencyclidine Scrn Ur Amphetamines Screen U Benzodiazepines Scrn Urine Cocaine Screen U Cannabinoids Screen Plasma/Serum Ethyl Alc 01/19/19 01/19/19 00:25 01:01 WBC RBC Hgb Hct MCV MCH MCHC RDW Std Deviation Plt Count MPV Immature Gran % (Auto) Neut % (Auto) Lymph % (Auto) [place] % (Auto) Eos % (Auto) Baso % (Auto) Immature Gran # (Auto) Neut # (Auto) Lymph # (Auto) [place] # (Auto) Eos # (Auto) Baso # (Auto) PT INR PTT ([place] FS) Sodium Potassium Chloride Carbon Dioxide Anion Gap BUN Creatinine Estimated GFR/1.73 m2 BUN/Creatinine Ratio Glucose Calculated Osmolality Calcium Total Bilirubin AST ALT Alkaline Phosphatase Ammonia 37 Creatine Kinase Troponin T [id number]-V-Skvrmcjgxeb Pept Total Protein Albumin Globulin Albumin/Globulin Ratio Plasma Lactate Urine Source Urine Color Urine Turbidity Urine pH Ur Specific [place] Urine Protein Ur Glucose (Stick) Ur Ketones (Stick) Urine Blood Urine Nitrite Urine Bilirubin Urobilinogen Dipstick Urine Leukocytes Urine WBC (Auto) Urine RBC (Auto) U Epithel Cells (Auto) Urine Bacteria (Auto) Urine Opiates Screen PRESUMPTIVE POSITIVE A Ur Oxycodone Screen PRESUMPTIVE POSITIVE A Ur Methadone, Qual NONE DETECTED Ur Barbiturates Screen NONE DETECTED Ur Phencyclidine Scrn NONE DETECTED Ur Amphetamines Screen NONE DETECTED U Benzodiazepines Scrn NONE DETECTED Urine Cocaine Screen NONE DETECTED U Cannabinoids Screen NONE DETECTED Plasma/Serum Ethyl Alc Orders Category Date Time Status Nursing- Obtain EKG ONCE Care 01/18/19 22:13 Active CHEST-1 VIEW [RAD] Stat Exams 01/18/19 22:[address] HEAD W/O CONTRAST [CT] Stat Exams 01/18/19 22:13 Taken ALCOHOL BLOOD Stat Lab 01/18/19 22:49 Completed AMMONIA [CHEM] Stat Lab 01/18/19 23:01 Completed CBC WITH ELECTRONIC DIFF [HEME] Stat Lab 01/18/19 22:49 Completed CK TOTAL [CHEM] Stat Lab 01/19/19 00:24 Completed COMPREHENSIVE METABOLIC PANEL [CHEM] Stat Lab 01/18/19 22:49 Completed LACTATE, PLASMA [CHEM] Stat Lab 01/18/19 22:49 Completed PRO B-NATRIURETIC PEPTIDE Stat Lab 01/18/19 22:49 Completed PROTIME WITH INR [COAG] Stat Lab 01/18/19 22:49 Completed PTT [COAG] Stat Lab 01/18/19 22:49 Completed TROPONIN T Stat Lab 01/18/19 22:49 Completed URINALYSIS W/POSS RFLX CULT [URINALYSIS] Stat Lab 01/19/19 00:25 Completed URINE CULTURE [RM] Routine Lab 01/19/19 01:13 Received URINE DRUG SCREEN Stat Lab 01/19/19 00:25 Completed 0.9% Sodium Chloride Inj [Ns] 1,000 ml Med 01/18/19 22:16 Discontinued IV 999 mls/hr 0.9% Sodium Chloride Inj [Ns] 1,000 ml Med 01/19/19 01:40 Active IV 999 mls/hr EKG [EKG] Stat Ther 01/18/19 22:13 Draft Result Diagrams: 01/18/19 22:49 01/18/19 22:49 - EKG 1 Time of EKG reading by physician:: 23:45 EKG Read and Signed by:: Mukul Betancur EKG Interpretation (*Must complete 3 of following elements*): Normal Rate: 86 Rhythm: NSR [place]: normal QRS: normal [place] Interval: normal ST Wave: normal - CT/MRI 1 CT Study: Head Impression: See EMR Report (Impression: No acute intracranial hemorrhage or process identified.) Departure - Departure Date of Disposition Decision: 01/19/19 Time of Disposition Decision: 01:48 DIAGNOSIS: AMS (altered mental status) Qualifiers: Altered mental status type: unspecified Qualified Code(s): R41.82 - Altered mental status, unspecified Rhabdomyolysis Qualifiers: Rhabdomyolysis type: non-traumatic Qualified Code(s): M62.82 - Rhabdomyolysis Disposition: ADMITTED INPATIENT 09 Certified Medical Emergency: Emergent Condition: Stable Additional Freetext Instructions: ED Follow Up Instructions: You have been treated by a care provider in the Emergency Department. These instructions are being provided to you so you can have an understanding of how to care for yourself upon discharge. Upon discharge from the Emergency Department, you are responsible for making arrangements for follow-up care by a physician of your choice. Take all prescribed medications as directed. Return to the Emergency Department immediately for any new or worsening symptoms. You may call the Physician Referral phone number at [phone] to obtain a list of Physicians who are taking new patients. Referrals and Follow-Ups: Cody Dominguez MD [Primary Care Provider] - - Critical Care Note This patient required my direct & personal management of CC.: No Attestation - Physician/ SANDRA Attestation Patient care was provided by Advanced Practice Provider:: No The physician spent face to face time with patient:: Yes Advanced Practice Provider documentation review:: Supervising physician onsite and consulted in the evaluation and care of this patient. The physician did have a face to face encounter with the patient. This chart was documented by the indicated scribe, (Aaron Peck, [place]) and accurately reflects the services I performed and decisions made by me, Mukul Betancur MD, as attested by the provider's signature.
[2019-01-19] MEDS ORDERED: LIDODERM TOP ONE (02:06)
[2019-01-19] MEDS ORDERED: VENTOLIN HFA INH PRN (03:16)
[2019-01-19] MEDS ORDERED: LR 1,000 ML IV ONE (05:00)
--- NOTE | 2019-01-19 05:55 | Diag Imaging Result Doc PS360 ---
EXAM: CHEST-1 VIEW HISTORY: ams TECHNIQUE: Chest single view COMPARISON: 07/30/2018 FINDINGS: The lungs are well expanded. The heart is not enlarged. The vessels are not distended. There are no infiltrates. No effusion identified. IMPRESSION: Negative exam. Electronically signed by Famiila Jefferson 01/19/2019 5:53 AM
--- NOTE | 2019-01-19 06:03 | Diag Imaging Result Doc PS360 ---
EXAM: LUMBAR SPINE 2-VIEWS HISTORY: Back pain. Evaluate for Spinal fracture TECHNIQUE: AP and lateral, two views COMPARISON: None. FINDINGS: There has been fusion from L4 to the upper sacrum. Approximately 4 mm of subluxation of L3 on L4. There is a vacuum disc at this level. No compression fracture. IMPRESSION: Degenerative changes and mild subluxation of L3 on L4. Electronically signed by Familia Jefferson 01/19/2019 6:00 AM
[2019-01-19] MEDS: HUMALOG SUBQ SCH ×4 (06:14→21:53)
[2019-01-19] MEDS: SYNTHROID PO SCH (06:15)
[2019-01-19] MEDS: PRILOSEC PO SCH (06:15)
--- NOTE | 2019-01-19 06:16 | HISTORY AND PHYSICAL ---
PRIMARY CARE PHYSICIAN: Dr. Cody Dominguez MD CHIEF COMPLAINT: Altered mental status. HISTORY OF PRESENT ILLNESS: Ms. Glaser is a 63-year-old lady with past medical history of chronic pain disorder, chronic opioid disorder, and frequent urinary tract infections who was brought in to the hospital because of altered mental status. Apparently, the patient was found lying on the floor when patient's son reached her house. She had fallen down. It is unclear whether she had lost consciousness or not, and it was unclear for how long she was down on the floor for and so she was brought to the emergency room. Apparently, she had an episode of confusion 3 months ago when she was in [place].The physicians there were concerned about early dementia. Her son is currently not at the bedside for the detailed history. In the emergency room, she was found to have acute kidney injury, elevated creatinine, phosphokinase enzymes, electrolyte abnormalities, and so the hospitalist team was consulted for further management. At the time of my evaluation, no family member is present. In the chart, the patient's son's contact information is not listed so the history is limited. SUBJECTIVE: The patient is alert, however she is not oriented. She could remember her date, but she needs to be redirected frequently to get the answer. Otherwise, she answers questions in an appropriate manner. REVIEW OF SYSTEMS: Could not be obtained in detail. However, it is positive for back pain. Negative for chest pain. Negative for shortness of breath. Negative for palpitations. Negative for nausea or vomiting. PAST MEDICAL HISTORY: 1. Based on review of chart, the patient has history of chronic pain. 2. Chronic opioid use disorder. 3. Hypothyroidism. 4. Essential hypertension. 5. Frequent UTIs. 6. Bai-usikmeu-wxlsuhqwc diabetes mellitus. 7. Hyperlipidemia. 8. Anemia. 9. Asthma. 10. Peptic ulcer disease in 1980s and . PAST SURGICAL HISTORY: 1. Bilateral carpal tunnel repair. 2. Right foot surgery. 3. Partial hysterectomy. 4. Neck disk surgery. 5. Spinal fusion of neck and lower back. 6. Subtotal thyroidectomy. 7. Cholecystectomy. MEDICATION LIST: According to previous discharge summary, she is to be on: 1. Calcium carbonate 600 mg daily. 2. Cetirizine 10 mg daily. 3. Cholecalciferol 1000 units daily. 4. Advair 150 1 inhalation twice daily. 5. Levothyroxine 88 mcg daily. 6. Losartan hydrochlorothiazide 100 12.5 mg 1 tablet daily. 7. Magnesium 64 mg daily. 8. Metformin 100 mg b.i.d. with meals. 9. Montelukast 10 mg daily. 10. Pantoprazole 40 mg daily. 11. Potassium chloride 20 mEq 3 times a day. 12. Sennoside 2 tablets daily. 13. Vitamin B complex 1 tablet daily. 14. Volmax 4 mg oral at bedtime. 15. Fluticasone 50 mcg nasal spray 1 spray intranasal daily. 16. Albuterol sulfate 1 puff inhaled every 4 hours as needed for shortness of breath. 17. Atorvastatin 20 mg at bedtime. 18. Baclofen 10 mg t.i.d. 19. Diphenoxylate atropine 1 tablet 3 times a day. 20. Fluticasone 225 mcg inhaled daily. 21. Morphine sulfate 15 mg every 12 hours extended release. 22. Percocet 10 1 tablet every 12 hours. 23. Pantoprazole 40 mg daily. 24. Topiramate 50 mg 4 times a day. 25. Zolpidem 10 mg at bedtime. 26. Montelukast 10 mg daily. 27. Furosemide 40 mg daily as needed. ALLERGIES: She is listed to be allergic to adhesive tape, cefazolin, clarithromycin, diflunisal, latex, povidone iron, rofecoxib, soap, sulfamethoxazole, tramadol, trimethoprim, and verapamil. FAMILY HISTORY: According to documents, father's side of the family is positive for coronary artery disease, stroke, diabetes, breast and lung cancer. She had 1 brother who had hypertension, 1 sister who had degenerative joint disease. SOCIAL HISTORY: She previously did not have tobacco, alcohol, or illicit drug use. She was a disabled nurse. She is with one adult child. PHYSICAL EXAMINATION: VITAL SIGNS: Currently, temperature 98.4, pulse 112, respiratory rate 19, and blood pressure 140/89. She is saturating 97% on room air. PHYSICAL EXAMINATION: GENERAL: Does not appear in acute distress. No pallor, cyanosis, clubbing, or icterus. LUNGS: Air entry bilaterally equal. No wheeze, rhonchi, crackles. CARDIOVASCULAR: S1, S2 normal. No murmur, rub, or gallop. Appears normal sinus rhythm on bedside monitor. ABDOMEN: Soft and nontender. EXTREMITIES: No lower extremity edema. NEUROLOGIC: She is alert. She has repetitive and same responses to different questions. For example, when I asked about her pain, its onset, duration and severity, she kept on mumbling I have back pain 3 times. Then, I have to redirect her to tell me more about her pain. However, she is oriented to herself. She could remember her date. She told me that this is [facility] rather than [facility]. She is able to raise both upper and lower extremity above ground level. She is able to smile on verbal commands. No facial asymmetry. No visible injury arce. BACK: On back examination, she does have tenderness in her lower back. LABORATORY: Labs are suggestive of leukocytosis. Normal coagulation, hyperkalemia, acute kidney injury, rhabdomyolysis, transaminitis. Positive urine for opiates. MICROBIOLOGY: Urine culture is in lab. IMAGING: Head CT and chest x-ray have been performed. The leads are pending. Electrocardiogram had normal sinus rhythm. ASSESSMENT AND PLAN: 1. Acute encephalopathy. Differential includes opioid use disorder as well as uremia from acute kidney injury versus dementia vs others. There is no documented history of seizure. 2. Hyperkalemia. Elevated anion gap and likely metabolic acidosis because of acute kidney injury due to rhabdomyolysis, use of HCTZ-losartan. 3. Transaminitis likely because of rhabdomyolysis. 4. Rhabdomyolysis, likely because of mechanical fall. The patient does mention that she has had recurrent falls. However, the exact history behind the most recent fall is not available at the moment. 5. Opioid use disorder. 6. Other issues including hypothyroidism, essential hypertension, frequent UTIs, and non-insulin- dependent diabetes mellitus. PLAN: 1. I will start patient on intravenous fluid resuscitation. Follow up with close BMP, and close input and output monitoring. I will also follow up with repeat electrolytes and kidney function. 2. I will follow up with head CT imaging results, though on my review, I could not see any intracranial hemorrhage. The long-term use of topiramate could also contribute to neuro cognitive impairment. If her mental status does not improve, that could also be another consideration. Once medications are reconciled, I would resume most of her home medication. 3. Once proper family contact has been established, family should be contacted to get detailed history to make sure patient did not have any seizure. cc: Alberto Mittal MD MTDD
--- NOTE | 2019-01-19 06:21 | Diag Imaging Result Doc PS360 ---
CT HEAD W/O CONTRAST - 01/18/2019 INDICATION: ams COMPARISON: None FINDINGS: The ventricles and sulci are normal in size and contour. No intracranial mass or hemorrhage. The skull is intact. The sinuses mastoids and middle ears are clear. IMPRESSION: Negative exam. This exam was performed using automated exposure control, adjustment of mA or kV according to patient size, and/or use of iterative reconstruction technique Electronically signed by Ignacio Jose 01/19/2019 6:19 AM
[2019-01-19] MEDS: BREO ELLIPTA 200/25 MCG INH INH SCH (08:11)
[2019-01-19] MEDS: ADVAIR 100/50 DISKUS INH SCH ×2 (08:11→20:05)
[2019-01-19] MEDS: SENOKOT PO SCH (08:26)
[2019-01-19] MEDS: ZYRTEC PO SCH (08:26)
[2019-01-19] MEDS: MIRALAX PO SCH (08:26)
[2019-01-19] MEDS: CALTRATE 600 PO SCH (08:26)
--- NOTE | 2019-01-19 09:31 | PROGRESS NOTE ---
DATE: 01/19/2019 SUBJECTIVE: Ms. Glaser admitted early this morning, patient of Dr. Cody Dominguez. A 63-year- old presented with altered mental status, past medical history of chronic pain disorder, chronic opioid disorder, frequent urinary tract infection, who was brought into the hospital because of altered mental status. Apparently, patient was found lying on the floor when son reached her house. She had fallen down. Unclear whether she lost consciousness or not. It is unclear how long she had been down in the floor. She was brought to the emergency room. Apparently had an episode of confusion 3 months ago while she was in [place]. Physicians there were concerned about early dementia. Son was at the bedside and gave history. In the ER she was found to have acute kidney injury, elevated creatinine phosphokinase, enzymes, electrolyte abnormality. PAST MEDICAL HISTORY: 1. History of chronic pain. 2. Chronic opioid disorder. 3. Hypothyroidism. 4. Essential hypertension. 5. Frequent UTIs. 6. Non insulin-dependent diabetes mellitus. 7. Hyperlipidemia. 8. Anemia. 9. Asthma. 10. Peptic ulcer disease in the 1980s and 1990s. PAST SURGICAL HISTORY: 1. Bilateral carpal tunnel repair. 2. Right foot surgery. 3. Partial hysterectomy. 4. Neck disk surgery. 5. Spinal fusion in the neck and lower back. 6. Subtotal thyroidectomy. 7. Cholecystectomy. MEDICATIONS: A long list of medicines she was on, and her toxicology screen was positive for oxycodone and opiates EXAM: General: On exam today, she is awake and alert, feels better, more comfortable. Vital Signs: Temperature 98.1 degrees, pulse 98, respirations 15, blood pressure 139/58. Eyes: Pupils are equal and round. Lungs: Clear in all lung baltazar. Cardiovascular exam: Regular rhythm and rate without murmur or S3. Abdomen: Soft. Skin: Warm and dry. : Urine output 4000 mL. IMAGIN. Lumbar spine x-ray: Degenerative changes, mild subluxation of L3-4. 2. Head CT without contrast: Negative exam. ASSESSMENT: 1. Acute encephalopathy, most likely related to opioid disorder, as well as uremia from acute kidney injury, and possibly some underlying dementia as well. There is no documented history of seizures. 2. Hyperkalemia, elevated anion gap, likely metabolic acidosis because of acute kidney injury due to rhabdomyolysis, and the use of hydrochlorothiazide/losartan, so that was held. 3. Transaminitis, likely because of rhabdomyolysis. 4. Rhabdomyolysis because of mechanical fall and lying on the floor for unknown amount of time. 5. Opioid use disorder. 6. History of hypothyroidism. 7. Essential hypertension. 8. Frequent urinary tract infections. 9. Diabetes mellitus type 2, not on insulin, so getting fluid resuscitation. LABS: Her creatine kinase yesterday was 19,684. Troponin was 0.042. Electrolytes: Sodium 138, potassium 5.2, chloride 93 BUN 62, creatinine 2.5. PLAN: So, we will continue to watch her renal function. Continue IV fluids. cc: Azael Schuster MD
[2019-01-19 11:22] LABS: CALCIUM 8.9 mg/dL (8.8-10.2); CREATININE 1.7 mg/dL (0.5-0.9); POTASSIUM 3.4 mmol/L (3.5-5.1)
[2019-01-19] MEDS ORDERED: LOVENOX SUBQ SCH (16:00)
[2019-01-20] MEDS: HUMALOG SUBQ SCH (06:00)
[2019-01-20] MEDS: SYNTHROID PO SCH (06:01)
[2019-01-20] MEDS: PRILOSEC PO SCH (06:01)
[2019-01-20 08:05] LABS: BASO# 0.02 X1000 (0.0-0.2); BASO% 0.2 % (0.0-0.8); EOS# 0.15 X1000 (0.0-0.7); EOS% 1.4 % (0.0-10.0); HEMATOCRIT 37.9 % (37.0-47.0); HEMOGLOBIN 12.3 g/dL (12.0-16.0); IMM GRAN# 0.03 X1000 (0.0-0.04); IMM GRAN% 0.3 % (0.0-0.5); LYMPH% 29.7 % (20.5-51.1); MCH 28.7 PG (27-31); MCHC 32.5 g/dL (33-37); MCV 88.6 FL (81-99); MONO% 9.6 % (1.7-9.3); MPV 10.7 FL (7.4-10.4); NEUT# 6.14 X1000 (1.4-6.5); NEUT% 58.8 % (42.2-75.2); PLT 317 X1000 (130-400); RBC 4.28 XMIL (4.2-5.4); RDW 13.5 % (11.5-14.5); WBC 10.44 X1000 (4.8-10.8)
[2019-01-20] MEDS: ADVAIR 100/50 DISKUS INH SCH (08:21)
[2019-01-20] MEDS: BREO ELLIPTA 200/25 MCG INH INH SCH (08:21)
[2019-01-20 08:45] LABS: ALB/GLOB RATIO 1.2; ALBUMIN 4.2 g/dL (3.5-5.0); CALCIUM 9.8 mg/dL (8.8-10.2); POTASSIUM 3.1 mmol/L (3.5-5.1); TOTAL BILIRUBIN 0.48 mg/dL (0.20-1.00); TOTAL PROTEIN 7.7 g/dL (6.3-8.3)
--- NOTE | 2019-01-20 10:15 | DISCHARGE SUMMARY ---
ADMISSION DATE: 01/19/2019 DISCHARGE DATE: 01/20/2019 She is a patient Dr. Cody Dominguez. She presented with altered mental status. A 63-year-old past medical history chronic disorder, chronic opioid disorder, frequent urinary tract infections, who was brought to the hospital because of altered mental status. Apparently, patient was found lying on the floor. When the patient's son reached her house she had fallen down, so unclear whether she lost consciousness or not, was unclear how long she was down in the floor and she was brought to the emergency room. Apparently, she had an episode of confusion 3 months ago when she was in [place]. The patient there are concerned about dementia. Son is involved in her in her health care I believe. In the emergency room, found to have acute kidney injury, elevated creatinine, elevated creatine kinase consistent with rhabdomyolysis. PAST MEDICAL HISTORY: 1. Based on review of her chart patient has a history of chronic pain. 2. Chronic opioid use. 3. Hypothyroidism. 4. Essential hypertension. 5. Frequent UTIs. 6. Noninsulin dependent diabetes mellitus. 7. Hyperlipidemia. 8. Anemia. 9. Asthma. 10. Peptic ulcer disease in 1980s and 1990s. PAST SURGICAL HISTORY: 1. Bilateral carpal tunnel repair. 2. Right foot surgery. 3. Partial hysterectomy. 4. Neck disk surgery. 5. Spinal fusion of the neck and lower back. 6. Subtotal thyroidectomy. 7. Cholecystectomy. Reviewed her list of medications, fairly extensive list. She reports to me that she is taking MS Contin twice a day and her Percocet twice a day, 10 mg twice a day, and MS Contin 15 mg twice a day. She is on an extensive list of medication that we had long discussions about trying to get off of some of the medications. I believe they are contributing to her passing out and her rhabdomyolysis, but she says she would rather not be in pain and take the chance. She was insistent on getting pain medicines and she wanted to go home. Review of her lab, her creatine kinase came down to 6000 and she was eating and drinking well. When she came in it was 19,000. Her creatinine came down from 1.7 to 1.00 and so we will let her go home. She will go back on her previous medications. As I reported, we discussed the importance of trying to wean some of these down but she was very resistant to this. LIST OF HOME MEDICINES: She is on balm ox 4 mg p.o. at bedtime. She takes ProAir inhaler as needed, Lipitor 20 mg a day, baclofen 10 mg t.i.d., calcium carbonate 600 mg daily, Zyrtec 10 mg a day, vitamin D3 1000 units daily, Lomotil 1 tablet t.i.d., Flonase 1 spray daily, fluticasone 1 spray daily, Advair 100/50 one puff b.i.d., Breo Ellipta 200/25 one puff daily, Lasix she takes as needed I guess for swelling, Synthroid 88 mcg daily, losartan hydrochlorothiazide 100/12.5 one a day, Slow-Mag 24 mg a day, metformin 500 mg b.i.d., Singulair 10 mg a day, MS Contin or morphine sulfate 15 mg p.o. q.12 hours, Percocet 10 mg q.12 hours, Protonix 40 mg a day, Topamax 50 mg p.o. 4 times a day, Senokot 2 to 3 tablets daily and her Ambien 10 mg at bedtime, vitamin B complex 1 a day. cc: Azael Schuster MD
[2019-01-20] MEDS: MIRALAX PO SCH (10:48)
[2019-01-20] MEDS: ZYRTEC PO SCH (10:49)
[2019-01-20] MEDS: CALTRATE 600 PO SCH (10:49)
[2019-01-20] MEDS: SENOKOT PO SCH (10:49)
[2019-01-20 12:20] VITALS: BP 134/78
== END 2019-01-20 13:29 | disposition home or self-care (01) | DRG 682 ==
LOC: SUPCPDRO → ED 21:16 → SUATTDRO 01-19 04:36 → 3N 01-19 04:36
PROVIDERS: ATTEND Emergency Medicine

== ENCOUNTER 2019-02-10 16:01 | Inpatient (IN) ==
--- NOTE | 2019-02-10 16:41 | Diag Imaging Result Doc PS360 ---
EXAM : CT HEAD/C-SPINE W/O CONTRAST HISTORY: AMS, FALL, HEAD INJURY TECHNIQUE: 1. CT head without contrast 2. CT cervical spine without contrast COMPARISON: Head compared to 01/18/2019 FINDINGS: Head: No parenchymal hemorrhage. No epidural or subdural hematoma. No subarachnoid hemorrhage. No mass identified on this noncontrasted exam. No hydrocephalus. No skull fracture. Cervical spine: There is good alignment to the cervical spine. No precervical soft tissue swelling. No subluxation. No fracture. Fusion to the mid and lower cervical spine. IMPRESSION: Head: No hemorrhage. No injury. Cervical spine: No acute fracture. This exam was performed using automated exposure control, adjustment of mA or kV according to patient size, and/or use of iterative reconstruction technique. Electronically signed by Familia Jefferson 02/10/2019 4:38 PM
--- NOTE | 2019-02-10 17:55 | PROVIDER DOCUMENTATION ---
This chart was entered by Mague Luis Scribe, acting as scribe for Jaswinder Askew MD. HPI-Head Injury - General Chief Complaint: STROKE ALERT Stated Complaint: "STROKE SYMPTOMS" FALLS Time Seen by Provider: 02/10/19 16:05 Source: patient Allergies/Adverse Reactions: Patient Allergies Allergy/AdvReac Type Severity Reaction Status Date / Time adhesive tape Allergy Unknown Verified 02/10/19 16:31 cefazolin [From Kefzol] Allergy ANAPHYLAXIS Verified 02/10/19 16:31 clarithromycin [From Biaxin] Allergy SWELLING Verified 02/10/19 16:31 diflunisal [From Dolobid] Allergy SWELLING Verified 02/10/19 16:31 latex Allergy ANAPHYLAXIS Verified 02/10/19 16:31 povidone-iodine Allergy Unknown Verified 02/10/19 16:31 [From Betadine] rofecoxib [From Vioxx] Allergy SWELLING Verified 02/10/19 16:31 soap [From Betadine] Allergy Unknown Verified 02/10/19 16:31 sulfamethoxazole Allergy SWELLING Verified 02/10/19 16:31 [From Bactrim] tramadol [From Ultram] Allergy ITCHING Verified 02/10/19 16:31 trimethoprim [From Bactrim] Allergy SWELLING Verified 02/10/19 16:31 verapamil Allergy ANAPHYLAXIS Verified 02/10/19 16:31 Home Medications: Home Medication List Medication Instructions Recorded Confirmed Last Taken Type Calcium Carbonate [Caltrate 600] 600 mg PO DAILY 04/06/17 02/10/19 02/10/19 History Cetirizine HCl [Zyrtec] 10 mg PO DAILY 04/06/17 02/10/19 02/10/19 History Cholecalciferol (Vitamin D3) 1,000 unit PO DAILY 04/06/17 02/10/19 02/10/19 History [Vitamin D3] Levothyroxine [Synthroid] 88 microgm PO DAILY@0700 04/06/17 02/11/19 02/10/19 History Losartan/Hctz [Hyzaar 100/12.5 mg 1 each PO DAILY 04/06/17 02/10/19 02/10/19 History Tab] Magnesium Cl D.r. [Slow-Mag] 64 mg PO DAILY 04/06/17 02/10/19 02/10/19 History Metformin [Glucophage] 500 mg PO BID CC 04/06/17 02/10/19 02/10/19 History Montelukast Sodium [Singulair] 10 mg PO DAILY 04/06/17 02/10/19 02/10/19 History Pantoprazole [Protonix] 40 mg PO QHS 04/06/17 02/11/19 02/10/19 History Potassium Chloride 40 meq PO TID 04/06/17 02/11/19 02/10/19 History Sennosides [Senokot] 2 tab PO DAILY 04/06/17 02/11/19 02/10/19 History Vitamin B Complex 1 each PO DAILY 04/06/17 02/10/19 02/10/19 History Albuterol Sulfate [Proair Hfa] 1 puff INHALATION Q4-6H PRN PRN 07/28/18 02/10/19 02/10/19 History Atorvastatin Calcium [Lipitor] 20 mg PO HS 07/28/18 02/10/19 02/10/19 History Baclofen 10 mg PO TID 07/28/18 02/11/19 02/10/19 History Fluticasone/Vilanterol [Breo 1 puff INH DAILY 07/28/18 02/11/19 02/10/19 History Ellipta 200-25 Mcg INH] Morphine Sulfate [Morphine Sulfate 15 mg PO Q12HR 07/28/18 02/10/19 02/10/19 History ER] Oxycodone/APAP 10 mg/325 mg 1 tab PO Q12HR 07/28/18 02/10/19 02/10/19 History [Percocet-10] Topiramate [Topamax] 50 mg PO 4XDAY 07/28/18 02/10/19 02/10/19 History Zolpidem [Ambien] 10 mg PO QHS 07/28/18 02/10/19 02/10/19 History Amlodipine Besylate 5 mg PO DAILY 02/11/19 02/11/19 Unknown History Aripiprazole 5 mg PO DAILY 02/11/19 02/11/19 Unknown History Bumetanide 1 mg PO DAILY 02/11/19 02/11/19 Unknown History Duloxetine HCl 60 mg PO DAILY 02/11/19 02/11/19 Unknown History Furosemide [Lasix] 40 mg PO BID 02/11/19 02/11/19 Unknown History Mupirocin Ointment [Bactroban 1 applic ORDERED DAILY 02/11/19 02/11/19 Unknown History Ointment] Spironolactone 25 mg PO BID 02/11/19 02/11/19 Unknown History Trazodone HCl 100 mg PO QHS 02/11/19 02/11/19 Unknown History - History of Present Illness-Head Injury Nature of Presenting Problem: 63 y/o female presents to ED after fall last night. Pt reports she hit her head and has been confused since the fall. Pt denies loss of consciousness. Pt is complaining of neck pain. Pt states she was dizzy after the fall and she crawled back to her bed. Pt is alert and nontoxic. Head Injury Location: reports: occipital Other injuries associated with incident:: reports: neck Quality of Pain: reports: aching Severity: reports: mild, moderate Onset/Duration: reports: last night Timing: reports: still present Method of Injury: reports: fell Any recent trauma/injury?: reports: to head Loss of Consciousness: no loss of consciousness Modifying Factors: improves with: nothing Injury Associated Symptoms: reports: back/neck pain, other (fall: hit head, confusion, -LOC) Locality of Occurance: Home Similar Symptoms Previously?: No Recently seen or treated by another doctor?: No Review of Systems - Adult - REVIEW OF SYSTEMS - ADULT Constitutional: denies: chills, fever Eyes: reports: no symptoms reported Ears, Nose, Mouth & Throat: reports: no symptoms reported Cardiovascular: reports: no symptoms reported Respiratory: reports: no symptoms reported Gastrointestinal: reports: no symptoms reported Genitourinary: reports: no symptoms reported Musculoskeletal: reports: neck pain. denies: back pain Integumentary: reports: no symptoms reported Neurological: denies: seizure, other (fall: hit head, confusion, -LOC) Psychiatric: reports: no symptoms reported Endocrine: reports: no symptoms reported Hematologic/Lymphatic: reports: no symptoms reported Allergic/Immunologic: reports: no symptoms reported All Other Systems: Reviewed and Negative Past History - Adult - PAST MEDICAL HISTORY-ADULT Review of Records: reports: Old Records Reviewed, Nursing Assessment Review, Medications Reviewed Major Childhood Illnesses: reports: denies history Cardiovascular: reports: HTN Respiratory: reports: asthma Gastrointestinal: reports: GERD Endocrine/Immune: reports: thyroid disorder (hypo) - PRIOR SURGERIES/PROCEDURES Surgical/Procedure History: reports: hysterectomy, orthopedic (extremity) (carpal tunnel; ankle), back/neck, other (cystoscopy) - IMMUNIZATION STATUS Childhood Immunizations: See Nurse Assessment Flu Vaccine: See Nurse Assessment - FAMILY HISTORY Family History: reviewed, not pertinent - SOCIAL HISTORY Smoking: non-smoker Substance Use: none/never Alcohol Use Frequency: never Living Situation: family Physical Exam- Neurological - Physical Exam-Neuro Initial Vital Signs Reviewed: Yes General Appearance: appears well, alert, no apparent distress Eye Exam: right eye: other (visual field loss) HENMT: moist mucous membranes Head Injury: other (hematoma to L occiptial scalp) Neck: non-tender, limited range of motion (pt states is baseline) Respiratory: chest non-tender, lungs clear, normal breath sounds Cardiovascular: normal peripheral pulses, regular rate, rhythm Abdominal Exam: normal bowel sounds, non tender, soft Extremity: normal range of motion, non-tender travel assistant Exam: normal hearing, normal speech, PERRL Coordination/Gait: normal finger to nose Motor/Sensory: no motor deficit, no sensory deficit, no pronator drift Neurologic: travel assistant II-XII nml as tested, grossly normal, no motor/sensory deficits Integumentary: normal color, warm/dry Psych/Mental Status: normal mood/affect, normal thought content, normal thought process. negative: oriented x 3 (pt unable to confirm what month it is) Progress - PLAN OF CARE/RESULTS Progress/Plan/Lab Results: Laboratory Results - last 24 hr 02/10/19 02/10/19 02/10/19 16:40 16:40 16:40 WBC 11.44 H RBC 3.99 L Hgb 11.5 L Hct 35.5 L MCV 89.0 MCH 28.8 MCHC 32.4 L RDW Std Deviation 13.3 Plt Count 285 MPV 11.7 H Immature Gran % (Auto) 0.3 Neut % (Auto) 62.9 Lymph % (Auto) 21.9 [place] % (Auto) 13.8 H Eos % (Auto) 0.8 Baso % (Auto) 0.3 Immature Gran # (Auto) 0.03 Neut # (Auto) 7.20 H Lymph # (Auto) 2.51 [place] # (Auto) 1.58 H Eos # (Auto) 0.09 Baso # (Auto) 0.03 PT 12.9 INR 0.93 PTT (Actin FS) 30.7 Sodium 129 L Potassium 4.0 Chloride 81 L Carbon Dioxide 31 Anion Gap 17 BUN 48 H Creatinine 2.2 H Estimated GFR/1.73 m2 23 BUN/Creatinine Ratio 22 Glucose 109 H POC Glucose Calculated Osmolality 272 Calcium 10.1 Total Bilirubin 0.30 AST 24 ALT 14 Alkaline Phosphatase 89 Troponin T Total Protein 7.6 Albumin 4.5 Globulin 3.0 Albumin/Globulin Ratio 1.0 Urine Source Urine Color Urine Clarity Urine pH Ur Specific [place] Urine Protein Urine Ketones Urine Blood Urine Nitrite Urine Bilirubin Urine Urobilinogen Urine Microscopic RBC Urine WBC Urine Microscopic WBC Ur Epithelial Cells Urine Crystals Urine Bacteria Urine Casts Urine Yeast Urine Glucose Urine Opiates Screen Ur Oxycodone Screen Urine Methadone Screen U Propoxyphene Qual Ur Barbituates Screen Ur Tricyclics Screen Ur Phencyclidine Scrn Ur Amphetamines Screen U Methamphetamines Scrn U Benzodiazepines Scrn Urine Cocaine Screen U Cannabinoids Screen 02/10/19 02/10/19 02/10/19 16:40 16:49 17:21 WBC RBC Hgb Hct MCV MCH MCHC RDW Std Deviation Plt Count MPV Immature Gran % (Auto) Neut % (Auto) Lymph % (Auto) [place] % (Auto) Eos % (Auto) Baso % (Auto) Immature Gran # (Auto) Neut # (Auto) Lymph # (Auto) [place] # (Auto) Eos # (Auto) Baso # (Auto) PT INR PTT (Actin FS) Sodium Potassium Chloride Carbon Dioxide Anion Gap BUN Creatinine Estimated GFR/1.73 m2 BUN/Creatinine Ratio Glucose POC Glucose 104 Calculated Osmolality Calcium Total Bilirubin AST ALT Alkaline Phosphatase Troponin T 0.064 Total Protein Albumin Globulin Albumin/Globulin Ratio Urine Source Urine Color Urine Clarity Urine pH Ur Specific [place] Urine Protein Urine Ketones Urine Blood Urine Nitrite Urine Bilirubin Urine Urobilinogen Urine Microscopic RBC Urine WBC Urine Microscopic WBC Ur Epithelial Cells Urine Crystals Urine Bacteria Urine Casts Urine Yeast Urine Glucose Urine Opiates Screen PRESUMPTIVE POSITIVE A Ur Oxycodone Screen PRESUMPTIVE POSITIVE A Urine Methadone Screen NONE DETECTED U Propoxyphene Qual NONE DETECTED Ur Barbituates Screen NONE DETECTED Ur Tricyclics Screen NONE DETECTED Ur Phencyclidine Scrn NONE DETECTED Ur Amphetamines Screen NONE DETECTED U Methamphetamines Scrn NONE DETECTED U Benzodiazepines Scrn NONE DETECTED Urine Cocaine Screen NONE DETECTED U Cannabinoids Screen NONE DETECTED 02/10/19 17:21 WBC RBC Hgb Hct MCV MCH MCHC RDW Std Deviation Plt Count MPV Immature Gran % (Auto) Neut % (Auto) Lymph % (Auto) [place] % (Auto) Eos % (Auto) Baso % (Auto) Immature Gran # (Auto) Neut # (Auto) Lymph # (Auto) [place] # (Auto) Eos # (Auto) Baso # (Auto) PT INR PTT (Actin FS) Sodium Potassium Chloride Carbon Dioxide Anion Gap BUN Creatinine Estimated GFR/1.73 m2 BUN/Creatinine Ratio Glucose POC Glucose Calculated Osmolality Calcium Total Bilirubin AST ALT Alkaline Phosphatase Troponin T Total Protein Albumin Globulin Albumin/Globulin Ratio Urine Source CLEAN CATCH Urine Color YELLOW Urine Clarity CLEAR Urine pH 6.5 Ur Specific [place] 1.000 Urine Protein NEGATIVE Urine Ketones NEGATIVE Urine Blood TRACE Urine Nitrite POSITIVE A Urine Bilirubin NEGATIVE Urine Urobilinogen NORMAL Urine Microscopic RBC <10 Urine WBC 2+ A Urine Microscopic WBC TNTC A Ur Epithelial Cells <10 Urine Crystals NONE SEEN Urine Bacteria 4+ Urine Casts NONE SEEN Urine Yeast NONE SEEN Urine Glucose NEGATIVE Urine Opiates Screen Ur Oxycodone Screen Urine Methadone Screen U Propoxyphene Qual Ur Barbituates Screen Ur Tricyclics Screen Ur Phencyclidine Scrn Ur Amphetamines Screen U Methamphetamines Scrn U Benzodiazepines Scrn Urine Cocaine Screen U Cannabinoids Screen Orders Category Date Time Status Admit - [facility] Routine AdmDCTranf 02/10/19 18:37 Active Cardiac Monitoring DIRECTED Care 02/10/19 17:43 Completed Cardiac Monitoring DIRECTED Care 02/10/19 17:53 Completed Finger Stick Blood Sugar (ED) DIRECTED Care 02/10/19 17:43 Completed Finger Stick Blood Sugar (ED) DIRECTED Care 02/10/19 17:53 Completed Neurological Check ORDERED Care 02/10/19 20:59 Active Oxygen Therapy- ED Nursing DIRECTED Care 02/10/19 17:43 Completed Oxygen Therapy- ED Nursing DIRECTED Care 02/10/19 17:53 Completed Saline Loc NOW Care 02/10/19 17:43 Completed Saline Loc NOW Care 02/10/19 17:53 Completed Heart Healthy Diet Diet 02/10/19 20:59 Active CHEST-PORTABLE [RAD] Stat Exams 02/10/19 17:[address] HEAD/C-SPINE W/O CONTRAST [CT] Stat Exams 02/10/19 16:15 Completed BMP [BASIC METABOLIC PANEL] [CHEM] Routine Lab 02/11/19 07:00 Completed CBC WITH DIFF [HEME] Routine Lab 02/11/19 05:23 Completed CBC WITH ELECTRONIC DIFF [HEME] Stat Lab 02/10/19 16:40 Completed COMPREHENSIVE METABOLIC PANEL [CHEM] Stat Lab 02/10/19 16:40 Completed MAGNESIUM [CHEM] Routine Lab 02/11/19 07:00 Completed PROTIME WITH INR [COAG] Stat Lab 02/10/19 16:40 Completed PTT [COAG] Stat Lab 02/10/19 16:40 Completed TROPONIN T Stat Lab 02/10/19 16:40 Completed URINE DRUG SCREEN PL Stat Lab 02/10/19 17:21 Completed 0.9% Sodium Chloride Inj [Ns] 1,000 ml Med 02/10/19 20:59 Discontinued IV 100 mls/hr ATORVAstatin [Lipitor] Med 02/10/19 21:00 Active 20 mg PO HS Acetaminophen [Tylenol] Med 02/10/19 19:33 Discontinued 1,000 mg PO NOW ONE Albuterol Sulfate Inhaler [Ventolin Hfa] Med 02/10/19 20:59 Active 2 puff INH Q4-6H PRN PRN Calcium Carbonate [Caltrate 600] Med 02/11/19 09:00 Active 600 mg PO DAILY Cetirizine [Zyrtec] Med 02/11/19 09:00 Active 10 mg PO DAILY Cholecalciferol (Vit D3) [Vitamin D] Med 02/11/19 09:00 Active 1,000 unit PO DAILY Fluticasone 50 Mcg Nasal [place] [Flonase] Med 02/11/19 09:00 Active 1 spray YAS DAILY Fluticasone/Vilant 200/25 INH [Breo Ellipta 200/25 Mcg Med 02/11/19 07:30 Active INH] 1 puff INH RTDAILY Levothyroxine [Synthroid] Med 02/11/19 07:00 Active 88 microgm PO DAILY@0700 Magnesium Cl D.r. [Slow-Mag] Med 02/11/19 09:00 Active 64 mg PO DAILY Metformin [Glucophage] Med 02/11/19 08:00 Active 500 mg PO BID CC Montelukast [Singulair] Med 02/11/19 09:00 Active 10 mg PO DAILY Morphine Med 02/10/19 20:59 Active 4 mg IV Q4H PRN PRN Ondansetron [Zofran] Med 02/10/19 20:59 Active 4 mg IV Q4H PRN PRN Pantoprazole [Protonix] Med 02/11/19 07:00 Active 40 mg PO DAILY@0700 Topiramate [Topamax] Med 02/10/19 21:00 Active 50 mg PO 4XDAY MDI Treatments Stat Oth 02/10/19 20:59 Active EKG [EKG] Stat Ther 02/10/19 17:53 Draft Transfer/Admit Order [TRANSFER] Routine Transfer 02/10/19 18:37 Completed Result Diagrams: 02/11/19 05:23 02/11/19 07:00 - EKG 1 Time of EKG reading by physician:: 16:53 EKG Read and Signed by:: Jaswinder Askew EKG Interpretation (*Must complete 3 of following elements*): Normal (Borderline) Rate: 88 Rhythm: NSR [place]: normal QRS: other (low voltage QRS) DC Interval: normal ST Wave: normal - XRAY 1 XRAY Study: Chest Impression: See EMR Report - CT/MRI 1 CT Study: Cervical Spine, Head Impression: See EMR Report ([facility] - [address], [address] [address] [facility] - [address] [place] [address] Department of Imaging Patient: [facility] Date: 02/10/19#: [id number] : 1955DM Status: PRE ERAcct#: [id number] Age/Sex: 63/FRoom/Bed: Loc: P.ED Ordering Physician: Barbara Jefferson Family Physician: Cody Dominguez MD Reason for Procedure: AMS, FALL, HEAD INJURY Signed EXAM : CT HEAD/C-SPINE W/O CONTRAST HISTORY: AMS, FALL, HEAD INJURY TECHNIQUE: 1. CT head without contrast 2. CT cervical spine without contrast COMPARISON: Head compared to 01/18/2019 FINDINGS: Head: No parenchymal hemorrhage. No epidural or subdural hematoma. No subarachnoid hemorrhage. No mass identified on this noncontrasted exam. No hydrocephalus. No skull fracture. Cervical spine: There is good alignment to the cervical spine. No precervical soft tissue swelling. No subluxation. No fracture. Fusion to the mid and lower cervical spine. IMPRESSION: Head: No hemorrhage. No injury. Cervical spine: No acute fracture. This exam was performed using automated exposure control, adjustment of mA or kV according to patient size, and/or use of iterative reconstruction technique. Electronically signed by Familia Jefferson 02/10/2019 4:38 PM 02/10/198 Interpreting Physician: Familia Jefferson MD Dictated Date/Time: 02/10/197 cc: Barbara Jefferson; Cody Dominguez MD) - CONSULTS/PCP/HOSPITALIST Notification #1 *Consult/PCP/Hospitalist*: Dr. Garcia Time Discussed: 19:00 Reason/Comments: Dehydration, hyponatremia Consult Disposition: Admit Departure - Departure Date of Disposition Decision: 02/10/19 Time of Disposition Decision: 20:00 DIAGNOSIS: Dehydration, Hyponatremia Disposition: HOME 01 Certified Medical Emergency: Emergent Condition: Stable - Critical Care Note This patient required my direct & personal management of CC.: No Attestation - Physician/ SANDRA Attestation Patient care was provided by Advanced Practice Provider:: No The physician spent face to face time with patient:: Yes Advanced Practice Provider documentation review:: Supervising physician onsite and consulted in the evaluation and care of this patient. The physician did have a face to face encounter with the patient. This chart was documented by the indicated scribe, (Mague Luis, Сергей) and accurately reflects the services I performed and decisions made by me, Jaswinder Askew MD, as attested by the provider's signature.
[2019-02-10 17:58] LABS: BASO# 0.03 X1000 (0.0-0.2); BASO% 0.3 % (0.0-0.8); EOS# 0.09 X1000 (0.0-0.7); EOS% 0.8 % (0.0-10.0); HEMATOCRIT 35.5 % (37.0-47.0); HEMOGLOBIN 11.5 g/dL (12.0-16.0); IMM GRAN# 0.03 X1000 (0.0-0.04); IMM GRAN% 0.3 % (0.0-0.5); LYMPH# 2.51 X1000 (1.2-3.4); LYMPH% 21.9 % (20.5-51.1); MCH 28.8 PG (27-31); MCHC 32.4 g/dL (33-37); MONO# 1.58 X1000 (0.11-0.59); MONO% 13.8 % (1.7-9.3); MPV 11.7 FL (7.4-10.4); NEUT% 62.9 % (42.2-75.2); PLT 285 X1000 (130-400); RBC 3.99 XMIL (4.2-5.4); RDW 13.3 % (11.5-14.5); WBC 11.44 X1000 (4.8-10.8)
[2019-02-10 18:04] LABS: INR 0.93; PROTIME 12.9 Seconds (11.0-16.0)
[2019-02-10 18:05] LABS: PTT 30.7 Seconds (22.3-41.8)
[2019-02-10 18:25] LABS: ALBUMIN 4.5 g/dL (3.5-5.0); CALCIUM 10.1 mg/dL (8.8-10.2); CREATININE 2.2 mg/dL (0.5-0.9); TOTAL BILIRUBIN 0.3 mg/dL (0.20-1.00); TOTAL PROTEIN 7.6 g/dL (6.3-8.3)
[2019-02-10 18:26] LABS: UR AMPHETAMINES QUAL NONE DETECTED (NONE DETECT); UR BARBITUATES QUAL NONE DETECTED (NONE DETECT); UR BENZODIAZEPIN QUAL NONE DETECTED (NONE DETECT); UR CANNABINOIDS QUAL NONE DETECTED (NONE DETECT); UR COCAINE QUAL NONE DETECTED (NONE DETECT); UR METHADONE QUAL NONE DETECTED (NONE DETECT); UR METHAMPHETAMINE QUAL NONE DETECTED (NONE DETECT); UR OPIATES QUAL PRESUMPTIVE POSITIVE (NONE DETECT); UR OXYCODONE QUAL PRESUMPTIVE POSITIVE (NONE DETECT); UR PCP QUAL NONE DETECTED (NONE DETECT); UR PROPOXYPHENE QUAL NONE DETECTED (NONE DETECT); UR TCA QUAL NONE DETECTED (NONE DETECT)
--- NOTE | 2019-02-10 18:36 | EKG Report ---
Test Performed on : 02/10/2019 4:53:43 PM Test Reason : CVa Blood Pressure : / mmHG Vent. Rate : 088 BPM Atrial Rate : 088 BPM P-R Int : 176 ms QRS Dur : 100 ms QT Int : 374 ms P-R-T Axes : 054 013 048 degrees QTc Int : 452 ms Normal sinus rhythm. Low voltage QRS Borderline ECG When compared with ECG of 18-JAN-2019 23:26, (Unconfirmed) No significant change was found Unconfirmed Result
--- NOTE | 2019-02-10 19:06 | Diag Imaging Result Doc PS360 ---
EXAM: CHEST-PORTABLE HISTORY: fall TECHNIQUE: Single view COMPARISON: 01/18/2019 FINDINGS: The lungs are well expanded. No contusion. No pneumothorax. The heart is not enlarged. The vessels are not distended. There are no infiltrates. No effusion identified. IMPRESSION: No injury. Electronically signed by Familia Jefferson 02/10/2019 7:04 PM
[2019-02-10] MEDS ORDERED: TYLENOL PO ONE (19:33)
[2019-02-10] MEDS ORDERED: ZOFRAN IV PRN (20:59)
[2019-02-10] MEDS ORDERED: VENTOLIN HFA INH PRN (20:59)
[2019-02-10] MEDS: TOPAMAX PO SCH (22:16)
[2019-02-10] MEDS: MORPHINE IV PRN (22:16)
[2019-02-10] MEDS: LIPITOR PO SCH (22:16)
[2019-02-11] MEDS: NS 1,000 ML IV SCH ×4 (01:19→21:00)
[2019-02-11 01:45] LABS: BILIRUBIN URINE NEGATIVE (NEGATIVE); BLOOD URINE TRACE (NEGATIVE); GLUCOSE URINE NEGATIVE (NEGATIVE); KETONE URINE NEGATIVE (NEGATIVE); LEUKOCYTES URINE 2+ (NEGATIVE); NITRITE URINE POSITIVE (NEGATIVE); PH URINE 6.5; PROTEIN URINE NEGATIVE (NEGATIVE); UROBILINOGEN URINE NORMAL
[2019-02-11 01:46] LABS: CLARITY CLEAR (CLEAR); COLOR YELLOW
[2019-02-11 01:47] LABS: URINE WBC TNTC /HPF (<10)
[2019-02-11 01:48] LABS: URINE BACTERIA 4+ /HFP; URINE CAST NONE SEEN /LPF; URINE CRYSTAL NONE SEEN /HPF; URINE EPITHELIAL CELLS <10 /HPF (<10); URINE RBC <10 /HPF (<10); URINE YEAST NONE SEEN /HPF
[2019-02-11 01:49] LABS: URINE SOURCE CLEAN CATCH
[2019-02-11] MEDS: MORPHINE IV PRN ×3 (06:05→22:59)
[2019-02-11] MEDS: SYNTHROID PO SCH (06:05)
[2019-02-11] MEDS: PROTONIX PO SCH (06:05)
[2019-02-11 06:21] LABS: BASO# 0.04 X1000 (0.0-0.2); BASO% 0.4 % (0.0-0.8); EOS# 0.11 X1000 (0.0-0.7); EOS% 1.1 % (0.0-10.0); HEMOGLOBIN 12.1 g/dL (12.0-16.0); IMM GRAN# 0.03 X1000 (0.0-0.04); IMM GRAN% 0.3 % (0.0-0.5); LYMPH# 3.64 X1000 (1.2-3.4); LYMPH% 37.9 % (20.5-51.1); MCH 28.5 PG (27-31); MCHC 32.7 g/dL (33-37); MCV 87.1 FL (81-99); MONO# 1.03 X1000 (0.11-0.59); MONO% 10.7 % (1.7-9.3); NEUT# 4.76 X1000 (1.4-6.5); NEUT% 49.6 % (42.2-75.2); PLT 286 X1000 (130-400); RBC 4.25 XMIL (4.2-5.4); WBC 9.61 X1000 (4.8-10.8)
[2019-02-11 07:23] LABS: AGAP 18; BUN 38 mg/dL (8-22); CALCIUM 9.9 mg/dL (8.8-10.2); CHLORIDE 82 mmol/L (98-107); COSMO 263; CREATININE 1.4 mg/dL (0.5-0.9); GLUCOSE 110 mg/dL (70-104); SODIUM 126 mmol/L (136-145); TCO2 27 mmol/L (25-35)
[2019-02-11 07:24] LABS: POTASSIUM 2.6 mmol/L (3.5-5.1)
[2019-02-11] MEDS ORDERED: KLOR-CON PO ONE (08:05)
[2019-02-11] MEDS ORDERED: NS + KCL 40 MEQ 1,000 ML IV SCH (08:15)
[2019-02-11] MEDS: FLONASE NAS SCH (08:41)
[2019-02-11] MEDS: CALTRATE 600 PO SCH (08:41)
[2019-02-11] MEDS: VITAMIN D PO SCH (08:41)
[2019-02-11] MEDS: SINGULAIR PO SCH (08:41)
[2019-02-11] MEDS: GLUCOPHAGE PO SCH ×2 (08:42→17:47)
[2019-02-11] MEDS: TOPAMAX PO SCH ×4 (08:42→21:00)
[2019-02-11] MEDS: SLOW-MAG PO SCH (08:42)
[2019-02-11] MEDS: ZYRTEC PO SCH (08:42)
[2019-02-11] MEDS: BREO ELLIPTA 200/25 MCG INH INH SCH (11:29)
[2019-02-11] MEDS ORDERED: LEVAQUIN 500 MG/D5W 500 MG/100 ML IVPB IV SCH (12:15)
[2019-02-11] MEDS ORDERED: POTASSIUM CHLORIDE 60 MEQ in NS 500 ML IV ONE (13:00)
[2019-02-11] MEDS ORDERED: SAMSCA PO ONE (13:00)
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
--- NOTE | 2019-02-11 16:16 | ECHO REPORT ---
ORDER DATE: 02/11/2019 INDICATION: Hyponatremia, near syncope, falls. FINDINGS: 1. The right atrium appears normal in size. 2. Mild tricuspid regurgitation. 3. Normal RV systolic function. On some views, there is suggestion of mild RV dilatation. 4. No significant pulmonic insufficiency. 5. Normal left atrial size with a dimension of 3.1 cm. 6. No mitral valve prolapse. Trace mitral regurgitation. No evidence of mitral stenosis. 7. Normal LV size, end-diastolic dimension of 3.8. Normal wall thicknesses with a posterior and interventricular septal wall thickness of 0.8 and 0.9 cm respectively. Normal LV systolic function. Estimated EF is 60% with normal wall motion. 8. Aortic valve opens well. It is trileaflet. No evidence of stenosis or insufficiency. 9. Aorta appears normal in visualized segments. 10. No pericardial effusion seen. cc: MD Belkis Cole CRNP
[2019-02-11] MEDS: LIPITOR PO SCH (20:59)
[2019-02-11] MEDS: RESTASIS 0.05% OPH DROPS BOTH EYES SCH (21:00)
[2019-02-12] MEDS: MORPHINE IV PRN ×2 (03:13→09:04)
[2019-02-12] MEDS: NS 1,000 ML IV SCH ×2 (06:19→13:53)
[2019-02-12] MEDS: SYNTHROID PO SCH (06:20)
[2019-02-12] MEDS: PROTONIX PO SCH (06:20)
[2019-02-12 06:32] LABS: BASO# 0.03 X1000 (0.0-0.2); BASO% 0.4 % (0.0-0.8); EOS# 0.05 X1000 (0.0-0.7); EOS% 0.6 % (0.0-10.0); HEMATOCRIT 35.5 % (37.0-47.0); HEMOGLOBIN 11.1 g/dL (12.0-16.0); IMM GRAN# 0.02 X1000 (0.0-0.04); IMM GRAN% 0.3 % (0.0-0.5); LYMPH% 40.5 % (20.5-51.1); MCH 28.1 PG (27-31); MCHC 31.3 g/dL (33-37); MCV 89.9 FL (81-99); MONO# 0.97 X1000 (0.11-0.59); MONO% 12.3 % (1.7-9.3); MPV 10.7 FL (7.4-10.4); NEUT# 3.63 X1000 (1.4-6.5); NEUT% 45.9 % (42.2-75.2); PLT 299 X1000 (130-400); RBC 3.95 XMIL (4.2-5.4); RDW 13.1 % (11.5-14.5)
[2019-02-12 06:51] LABS: CALCIUM 9.8 mg/dL (8.8-10.2); CREATININE 1.1 mg/dL (0.5-0.9); POTASSIUM 3.2 mmol/L (3.5-5.1)
[2019-02-12] MEDS: BREO ELLIPTA 200/25 MCG INH INH SCH (08:37)
[2019-02-12] MEDS: FLONASE NAS SCH (09:02)
[2019-02-12] MEDS: RESTASIS 0.05% OPH DROPS BOTH EYES SCH ×2 (09:03→22:58)
[2019-02-12] MEDS: TOPAMAX PO SCH ×4 (09:03→20:23)
[2019-02-12] MEDS: ZYRTEC PO SCH (09:03)
[2019-02-12] MEDS: SINGULAIR PO SCH (09:03)
[2019-02-12] MEDS: VITAMIN D PO SCH (09:03)
[2019-02-12] MEDS: CALTRATE 600 PO SCH (09:03)
[2019-02-12] MEDS: SLOW-MAG PO SCH (09:04)
[2019-02-12] MEDS: GLUCOPHAGE PO SCH ×2 (09:05→16:07)
[2019-02-12] MEDS: POTASSIUM CHLORIDE 20 MEQ/SWI 20 MEQ/100 ML IVPB IV SCH ×2 (11:16→13:48)
--- NOTE | 2019-02-12 12:01 | PROGRESS NOTE ---
DATE: 02/12/2019 SUBJECTIVE: The patient reports feeling fine. No dizziness, but she reports not being able to sleep in the last 3 days. OBJECTIVE: Vital Signs: Temperature 98.1 degrees, heart rate 80, respiratory rate 18, blood pressure 125/65, O2 saturation 97% on 2 L nasal cannula. General: This is a 63-year-old female, lying in bed in no acute distress. Cardiovascular: S1, S2 heard. No murmurs, gallops, or rubs. Regular rate and rhythm. Respiratory: Clear bilaterally to auscultation. No work of breathing or using accessory muscles. Abdomen: Soft. Nontender to palpation. Bowel sounds present. No organomegaly. Extremities: No clubbing, cyanosis, or edema. Peripheral pulses present in both legs. Neurological: The patient is alert and oriented x3. Moves all 4 extremities. LABORATORY DATA: Reviewed. ASSESSMENT AND PLAN: 1. Fall secondary to losing her balance. The patient reports feeling definitely less weak and more oriented. Will continue with intravenous fluids. 2. Hyponatremia. That condition is resolved. 3. Acute on chronic kidney disease stage 1. Creatinine is 1.1. Will continue with intravenous fluids. 4. Diabetes mellitus type 2. Will continue with sliding scale insulin and Accu-Chek before meals and also at bedtime. 5. Chronic insomnia. We will restart home medications, in this case Ambien and trazodone. 6. Urinary tract infection. The patient has been on Levaquin. Urine culture is still pending. It shows gram-negative rods. Will see what it shows tomorrow. 7. Hypothyroidism. Will continue home dose of Synthroid. 8. Disposition. At this point, if the patient feels better and labs and urine culture is available tomorrow, she will be discharged. cc: Grover Flanagan MD
[2019-02-12] MEDS: LIORESAL PO SCH ×2 (12:34→17:49)
[2019-02-12] MEDS: LEVAQUIN PO SCH (13:53)
[2019-02-12] MEDS: MS CONTIN PO SCH ×2 (17:50→20:23)
[2019-02-12] MEDS: LIPITOR PO SCH (20:22)
[2019-02-12] MEDS: ALDACTONE PO SCH (20:22)
[2019-02-12] MEDS: LASIX PO SCH (20:23)
[2019-02-12] MEDS: PERCOCET-10 PO SCH (20:24)
[2019-02-12] MEDS ORDERED: KLOR-CON PO ONE (20:41)
[2019-02-12] MEDS ORDERED: AMBIEN PO SCH (21:00)
[2019-02-12] MEDS ORDERED: DESYREL PO SCH (21:00)
[2019-02-12] MEDS ORDERED: PROTONIX PO SCH (21:00)
[2019-02-13 06:39] LABS: BASO# 0.04 X1000 (0.0-0.2); BASO% 0.4 % (0.0-0.8); EOS# 0.19 X1000 (0.0-0.7); EOS% 2.1 % (0.0-10.0); HEMATOCRIT 35.8 % (37.0-47.0); IMM GRAN# 0.05 X1000 (0.0-0.04); IMM GRAN% 0.6 % (0.0-0.5); LYMPH# 4.13 X1000 (1.2-3.4); LYMPH% 45.5 % (20.5-51.1); MCH 28.1 PG (27-31); MCHC 30.7 g/dL (33-37); MCV 91.3 FL (81-99); MONO# 1.01 X1000 (0.11-0.59); MONO% 11.1 % (1.7-9.3); MPV 10.8 FL (7.4-10.4); NEUT# 3.66 X1000 (1.4-6.5); NEUT% 40.3 % (42.2-75.2); PLT 305 X1000 (130-400); RBC 3.92 XMIL (4.2-5.4); RDW 13.5 % (11.5-14.5); WBC 9.08 X1000 (4.8-10.8)
[2019-02-13 06:52] LABS: CALCIUM 9.9 mg/dL (8.8-10.2); CREATININE 1.2 mg/dL (0.5-0.9); POTASSIUM 3.2 mmol/L (3.5-5.1)
[2019-02-13 08:02] VITALS: BP 131/80
[2019-02-13] MEDS ORDERED: KLOR-CON PO ONE (08:10)
[2019-02-13] MEDS: BREO ELLIPTA 200/25 MCG INH INH SCH (08:14)
[2019-02-13] MEDS: LIORESAL PO SCH (08:52)
[2019-02-13] MEDS: VITAMIN D PO SCH (08:52)
[2019-02-13] MEDS: CALTRATE 600 PO SCH (08:52)
[2019-02-13] MEDS: SLOW-MAG PO SCH (08:52)
[2019-02-13] MEDS: LEVAQUIN PO SCH (08:52)
[2019-02-13] MEDS: LASIX PO SCH (08:52)
[2019-02-13] MEDS: GLUCOPHAGE PO SCH (08:52)
[2019-02-13] MEDS: FLONASE NAS SCH (08:52)
[2019-02-13] MEDS: PERCOCET-10 PO SCH (08:53)
[2019-02-13] MEDS: MS CONTIN PO SCH (08:53)
[2019-02-13] MEDS: ZYRTEC PO SCH (08:53)
[2019-02-13] MEDS: SINGULAIR PO SCH (08:53)
[2019-02-13] MEDS: SYNTHROID PO SCH (08:54)
[2019-02-13] MEDS: ALDACTONE PO SCH (08:54)
[2019-02-13] MEDS ORDERED: CYMBALTA PO SCH (09:00)
[2019-02-13] MEDS ORDERED: SENOKOT PO SCH (09:00)
--- NOTE | 2019-02-13 14:03 | DISCHARGE SUMMARY ---
ADMISSION DATE: 02/10/2019 DISCHARGE DATE: 02/13/2019 PRIMARY CARE PROVIDER: Cody Dominguez MD PERTINENT PROCEDURES: Head and cervical spine CT: Good alignment of the cervical spine. No soft tissue swelling. No subluxation. No fracture. Fusion to the mid and lower cervical spine. Head CT: No hemorrhage, no hemorrhage, no injury. Cervical spine, no acute fracture. Echocardiogram: EF of 60%. DISCHARGE DIAGNOSES: 1. Fall secondary to losing balance. The patient reported feeling weak. She was treated for dehydration with IV fluids and has improved. 2. Hyponatremia resolved. 3. Acute kidney injury on chronic kidney disease stage 1. Creatinine is back to baseline. 4. Diabetes mellitus type 2. Continue diabetic diet. Patient is diet controlled. 5. Chronic insomnia. The patient has been initiated back on her Ambien and trazodone. 6. Urinary tract infection. The patient will be discharged home on p.o. Levaquin. 7. Hypothyroidism. Continue Synthroid. HOSPITAL COURSE: Briefly, Ms. Glaser is a 63-year-old female with past medical history of chronic pain secondary to spinal stenosis and back surgeries, frequent UTIs, frequent falls lately. Most recently admitted due to altered mental status earlier in the month. Could be high suspicion for pain medication. She has since developed some chronic kidney disease. She reported that she had fell in the evening, hit the back of her head in the bathtub and noticed that she was more confused. She came to the ED where she had a head and cervical spine CT that did not show any acute findings. She was found to be hyponatremic with a sodium of 129 and an elevated white count with reported symptoms of urinary tract infection. Drug screen was positive for opiates and oxycodone. She was found to have a urinary tract infection. She was adequately hydrated throughout her hospital stay, initiated on IV antibiotics and will be discharged back home today with self-care to follow up with her primary care provider. VITAL SIGNS: Temperature is 97.8 degrees, heart rate 94, respirations 18, blood pressure 131/80, O2 is 99% on room air. DISCHARGE DIET: Regular. DISCHARGE MEDICATIONS: 1. Ambien 10 mg p.o. at bedtime. 2. Protonix 40 mg p.o. at bedtime. 3. Morphine sulfate 15 mg p.o. q.12 hours. 4. Oxycodone 10/325 one tab p.o. q.12 hours. 5. Norvasc 5 mg p.o. daily. 6. Requip 5 mg p.o. daily. 7. Baclofen 10 mg p.o. t.i.d. 8. 1 application as ordered. 9. Breo Ellipta 1 puff inhaled daily. 10. Bumetanide 1 mg p.o. daily. 11. Calcitrate 600 p.o. daily. 12. Cymbalta 60 mg p.o. daily. 13. Metformin 500 mg p.o. b.i.d. 14. Losartan hydrochlorothiazide 1 each p.o. daily. 15. Lasix 40 mg p.o. b.i.d. 16. Lipitor 20 mg p.o. at bedtime. 17. Potassium chloride 40 mEq p.o. t.i.d. 18. Albuterol sulfate 1 puff inhaled daily. 19. Senokot 2 tablets p.o. daily. 20. Singulair 10 mg p.o. daily. 21. Flomax 64 mg p.o. daily. 22. Spironolactone 25 mg p.o. b.i.d. 23. Synthroid 88 mcg p.o. daily. 24. Topamax 50 mg p.o. 4 times a day. 25. Vitamin B complex 1 each p.o. daily. 26. Vitamin D3 1000 units p.o. daily. 27. Zyrtec 10 mg p.o. daily 28. Levaquin 500 mg p.o. daily x5 days. DISCHARGE INSTRUCTIONS: Ms. Glaser is being discharged back home. She is take all medications as prescribed. She is to follow up with her primary care provider, Dr. Cody Dominguez in the next 7 to 10 days. She can return to the ED or call 911 for any worsening of symptoms. She has been educated to stay hydrated. Dictated by MICKI Cardenas for Hank Vazquez MD cc: Hank Vazquez MD [facility]
--- NOTE | 2019-02-14 01:16 | DISCHARGE SUMMARY ---
ADMISSION DATE: 02/10/2019 DISCHARGE DATE: 02/13/2019 ADDENDUM: The patient was seen and examined by myself. Full note dictated and discussed with the nurse practitioner. The patient will be discharged home. She has Enterobacter aerogenes urinary tract infection that is thankfully sensitive to Levaquin that she is on. Her potassium was again low, this has been replaced. The patient appears to be feeling better. She unfortunately was quite interested in her book this morning and was unable to answer any other questions. I did discuss with her that we were going to discharge her home due to her culture and sensitivities, and she did tiffany her agreement with that. cc: Hank Vazquez MD
== END 2019-02-13 10:44 | disposition home or self-care (01) | DRG 683 ==
LOC: P.ED 16:01 → SUATTDRO 20:04 → P.MEDSURG 20:04
PROVIDERS: ATTEND Family Medicine